=== PATIENT | female | born 1965 | race Caucasian/White ===

== ENCOUNTER → 2016-10-13 | Outpatient (CLI) | payer OTHER ==
[~2016-10-13] MED LIST: AMBI5TAB OR; MULTIVIT PO; OMEGA 3 PO; PERC5TAB6 PO; PRESTIQ PO
[2016-10-13 07:30] LABS: MEAN CORPUSCULAR HEMOGLOBIN 32.1 pg (27.0-33.0); MEAN CORPUSCULAR HGB CONC 32.5 g/dl (32.0-36.5); MEAN CORPUSCULAR VOLUME 98.8 fl (80.0-96.0); RED CELL DISTRIBUTION WIDTH 12.7 % (11.5-14.5); WHITE BLOOD COUNT 4.1 K/mm3 (4.0-10.0)
[2016-10-13 08:03] LABS: ALBUMIN 3.8 GM/DL (3.2-5.2); ALBUMIN/GLOBULIN RATIO 1.15 (1.00-1.93); ALKALINE PHOSPHATASE 39 U/L (45-117); ALT/SGPT 32 U/L (12-78); ANION GAP 8 MEQ/L (8-16); AST/SGOT 29 U/L (15-37); BILIRUBIN,TOTAL 0.5 MG/DL (0.2-1.0); BLOOD UREA NITROGEN 19 MG/DL (7-18); CALCIUM LEVEL 8.6 MG/DL (8.5-10.1); CARBON DIOXIDE LEVEL 26 MEQ/L (21-32); CHLORIDE LEVEL 108 MEQ/L (98-107); CREATININE FOR GFR 0.66 MG/DL (0.55-1.02); GLOMERULAR FILTRATION RATE > 60.0 (>58); GLUCOSE, FASTING 87 MG/DL (70-105); POTASSIUM SERUM 4.2 MEQ/L (3.5-5.1); SODIUM LEVEL 142 MEQ/L (136-145); TOTAL PROTEIN 7.1 GM/DL (6.4-8.2)
== END ==
LOC: M LAB 06:36
PROVIDERS: ATTEND Nurse Practitioner Family
DX: R63.4 Abnormal weight loss (principal)

== ENCOUNTER → 2016-10-31 | Outpatient (REF) | payer OTHER | LOC: M LAB REF 16:20 | PROVIDERS: ATTEND Physician Assistant | DX: J02.9 Acute pharyngitis, unspecified (principal) ==

== ENCOUNTER 2016-11-20 16:59 | Emergency (ER) | payer OTHER ==
[~2016-11-20] VITALS: Ht 160 cm; Wt 54.4 kg
[2016-11-20 17:01] VITALS: BP 138/98
[2016-11-20] MEDS ORDERED: LOSA25TA8 PO (17:48)
== END 2016-11-20 20:28 | disposition left against medical advice (07) ==
LOC: M ED 18:13
DX: S09.92XA Unspecified injury of nose, initial encounter (principal); Z53.21 Procedure and treatment not carried out due to patient leaving prior to being seen by health care provider

== ENCOUNTER → 2016-11-21 | Outpatient (CLI) | payer OTHER ==
[~2016-11-21] MED LIST changes: +LOSA25TA8 PO
--- NOTE | 2016-11-21 18:03 | REP ---
Clinical: Facial pain with recent fall. Technique: AP, valle, oblique orbital, lateral nasal and zygomatic arch views. Findings: The osseous structures appear intact without obvious acute fracture or dislocation. The sinuses appear well-aerated and without obvious fluid levels. Subtle nasal bone fracture cannot definitively be excluded. Orbits are intact. Zygomatic arches appear intact. Impression: Cannot exclude subtle nasal bone fracture. Otherwise normal facial bone series. Signed by Geovanny Sharma MD 11/21/2016 05:55 P
== END ==
LOC: M WUC 10:53
PROVIDERS: ATTEND Physician Assistant
DX: S00.33XA Contusion of nose, initial encounter (principal); S00.83XA Contusion of other part of head, initial encounter

== ENCOUNTER 2016-12-24 12:58 | Emergency (ER) | payer OTHER ==
[~2016-12-24] VITALS: Ht 160 cm; Wt 54.4 kg
[2016-12-24 12:59] VITALS: BP 110/79
[2016-12-24] MEDS ORDERED: CIPR500T89 PO (14:07)
[2016-12-24] MEDS ORDERED: PYRI200T5 PO (14:07)
[2016-12-24] MEDS ORDERED: CIPROFLOXACIN 500 MG TAB PO ONE (14:15)
[2016-12-24] MEDS ORDERED: PHENAZOPYRIDINE 100 MG TAB PO ONE (14:15)
== END 2016-12-24 14:24 | disposition home or self-care (01) ==
LOC: M ED 14:11
DX: N39.0 Urinary tract infection, site not specified (principal); Z79.899 Other long term (current) drug therapy; Z88.0 Allergy status to penicillin; Z88.2 Allergy status to sulfonamides

== ENCOUNTER → 2017-01-09 | Outpatient (REF) | payer OTHER ==
[~2017-01-09] MED LIST changes: +CIPR500T89 PO; +PYRI200T5 PO
== END ==
LOC: M LAB REF 16:58
PROVIDERS: ATTEND Nurse Practitioner Family
DX: R30.0 Dysuria (principal)

== ENCOUNTER 2017-03-03 20:06 | Emergency (ER) | payer OTHER ==
[~2017-03-03] VITALS: Ht 157.5 cm; Wt 55.0 kg
[~2017-03-03 20:06] MED LIST changes: +CIPR-249 PO; -CIPR500T89 PO; +PERC5TAB12 PO; -PERC5TAB6 PO; +PYRI1TAB5 PO; -PYRI200T5 PO
[2017-03-03] MEDS ORDERED: ALPR0.25 (20:15)
[2017-03-03 21:51] VITALS: BP 134/98
== END 2017-03-03 22:31 | disposition home or self-care (01) ==
LOC: M ED 22:12
DX: F10.129 Alcohol abuse with intoxication, unspecified (principal); Z79.899 Other long term (current) drug therapy; Z88.0 Allergy status to penicillin; Z88.2 Allergy status to sulfonamides

== ENCOUNTER → 2018-02-28 | Outpatient (CLI) | payer OTHER | LOC: M RAD 13:00 | DX: N63.23 Unspecified lump in the left breast, lower outer quadrant (principal) | CPT/HCPCS: 76642 ==

== ENCOUNTER → 2018-06-17 | Outpatient (CLI) | payer OTHER ==
[2018-06-17 18:05] LABS: HEMATOCRIT 34.8 % (36.0-47.0); HEMOGLOBIN 11.2 g/dl (12.0-15.5); MEAN CORPUSCULAR HEMOGLOBIN 30.4 pg (27.0-33.0); MEAN CORPUSCULAR HGB CONC 32.2 g/dl (32.0-36.5); MEAN CORPUSCULAR VOLUME 94.6 fl (80.0-96.0); PLATELET COUNT, AUTOMATED 225 10^3/uL (150-450); RED BLOOD COUNT 3.68 10^6/uL (4.00-5.40); RED CELL DISTRIBUTION WIDTH 12.4 % (11.5-14.5); WHITE BLOOD COUNT 4.8 10^3/uL (4.0-10.0)
[2018-06-17 18:32] LABS: ALBUMIN 3.9 GM/DL (3.2-5.2); ALKALINE PHOSPHATASE 53 U/L (45-117); ALT/SGPT 26 U/L (12-78); ANION GAP 7 MEQ/L (8-16); AST/SGOT 20 U/L (7-37); BILIRUBIN,TOTAL 0.3 MG/DL (0.2-1.0); BLOOD UREA NITROGEN 13 MG/DL (7-18); CALCIUM LEVEL 8.4 MG/DL (8.5-10.1); CARBON DIOXIDE LEVEL 30 MEQ/L (21-32); CHLORIDE LEVEL 103 MEQ/L (98-107); CREATININE FOR GFR 0.61 MG/DL (0.55-1.30); GLOMERULAR FILTRATION RATE > 60.0 (>51); GLUCOSE, FASTING 72 MG/DL (70-100); POTASSIUM SERUM 3.8 MEQ/L (3.5-5.1); SODIUM LEVEL 140 MEQ/L (136-145); TOTAL PROTEIN 6.9 GM/DL (6.4-8.2)
== END ==
LOC: M LAB 15:56
DX: F10.20 Alcohol dependence, uncomplicated (principal)
CPT/HCPCS: 84443

== ENCOUNTER → 2018-06-17 | Outpatient (CLI) | payer OTHER ==
[2018-06-17 17:31] LABS: APPEARANCE, URINE CLEAR (CLEAR); BACTERIA, URINE AUTO NEGATIVE (NEGATIVE); BILIRUBIN, URINE AUTO NEGATIVE (NEGATIVE); BLOOD, URINE BLOOD NEGATIVE (NEGATIVE); COLOR, URINE STRAW (YELLOW); GLUCOSE, URINE (UA) AUTO NEGATIVE (NEGATIVE); KETONE, URINE AUTO NEGATIVE (NEGATIVE); LEUKOCYTE ESTERASE, URINE AUTO NEGATIVE (NEGATIVE); NITRITE, URINE AUTO NEGATIVE (NEGATIVE); PROTEIN, URINE AUTO NEGATIVE (NEGATIVE); RBC, URINE AUTO 0 /HPF (0-3); SPECIFIC GRAVITY URINE AUTO 1.005 (1.002-1.035); SQUAMOUS EPITHELIAL CELL UR AU 0 /HPF (0-6); UROBILINOGEN, URINE AUTO 0.2 mg/dL (0.0-2.0); WBC, URINE AUTO 0 /HPF (0-3)
[2018-06-17 17:51] LABS: ALBUMIN 3.8 GM/DL (3.2-5.2); ALBUMIN/GLOBULIN RATIO 1.31 (1.00-1.93); ALKALINE PHOSPHATASE 55 U/L (45-117); ALT/SGPT 30 U/L (12-78); ANION GAP 5 MEQ/L (8-16); AST/SGOT 19 U/L (7-37); BILIRUBIN,TOTAL 0.3 MG/DL (0.2-1.0); BLOOD UREA NITROGEN 12 MG/DL (7-18); CALCIUM LEVEL 8.2 MG/DL (8.5-10.1); CARBON DIOXIDE LEVEL 30 MEQ/L (21-32); CHLORIDE LEVEL 104 MEQ/L (98-107); GLOMERULAR FILTRATION RATE > 60.0 (>51); GLUCOSE, FASTING 76 MG/DL (70-100); POTASSIUM SERUM 3.8 MEQ/L (3.5-5.1); SODIUM LEVEL 139 MEQ/L (136-145); TOTAL PROTEIN 6.7 GM/DL (6.4-8.2)
[2018-06-17 18:02] LABS: HEPATITIS B SURFACE ANTIBODY POSITIVE (POSITIVE)
[2018-06-17 18:06] LABS: BASO % 0.8 % (0.0-1.0); EOS # 0.1 10^3/uL (0.0-0.50); EOS % 2.3 % (0.0-3.0); HEMATOCRIT 35.7 % (36.0-47.0); HEMOGLOBIN 11.6 g/dl (12.0-15.5); IMMATURE GRANULOCYTE % 0.2 % (0-3.0); LYMPH # 2.1 10^3/uL (1.5-4.5); LYMPH % 43.6 % (24.0-44.0); MEAN CORPUSCULAR HEMOGLOBIN 30.3 pg (27.0-33.0); MEAN CORPUSCULAR HGB CONC 32.5 g/dl (32.0-36.5); MEAN CORPUSCULAR VOLUME 93.2 fl (80.0-96.0); MONO # 0.3 10^3/uL (0.0-0.8); NEUTROPHILS # 2.2 10^3/uL (1.8-7.7); NEUTROPHILS % 46.1 % (36.0-66.0); PLATELET COUNT, AUTOMATED 230 10^3/uL (150-450); RED BLOOD COUNT 3.83 10^6/uL (4.00-5.40); RED CELL DISTRIBUTION WIDTH 12.4 % (11.5-14.5); WHITE BLOOD COUNT 4.7 10^3/uL (4.0-10.0)
[2018-06-17 18:13] LABS: HEPATITIS B SURFACE ANTIGEN NEGATIVE (NEGATIVE)
[2018-06-22 00:07] LABS: ALPHA 2-MACROGLOBULIN 192 mg/dL (110-276); ALT 24 IU/L (0-40); APOLIPOPROTEIN A-1 177 mg/dL (116-209); FIBROSIS SCORE 0.07 (0.00-0.21); GGT 12 IU/L (0-60); HAPTOGLOBIN 89 mg/dL (34-200); HEPATITIS A IgG TOTAL Positive (Negative); HEPATITIS C QUANTITATION HCV Not Detected IU/mL (.); NECROINFLAM SCORE 0.08 (0.00-0.17); NECROINFLAMM GRADE A0-No activity (.); TOTAL BILIRUBIN 0.3 mg/dL (0.0-1.2)
== END ==
LOC: M LAB 16:05
DX: Z02.2 Encounter for examination for admission to residential institution (principal); B18.2 Chronic viral hepatitis C; B16.9 Acute hepatitis B without delta-agent and without hepatic coma; B15.9 Hepatitis A without hepatic coma; R53.83 Other fatigue
CPT/HCPCS: 84460

== ENCOUNTER → 2018-09-11 | Outpatient (CLI) | payer OTHER ==
[~2018-09-11] MED LIST changes: +ALPR0.25; +LOSA25TA14 PO; -LOSA25TA8 PO
[2018-09-11 13:39] LABS: HEPATITIS B SURFACE ANTIGEN NEGATIVE (NEGATIVE)
[2018-09-11 14:05] LABS: HEPATITIS C VIRUS ABY INDEX 0.1 INDEX (<0.8)
[2018-09-11 14:06] LABS: HEPATITIS B CORE ANTIBODY IGM NEGATIVE (NEGATIVE)
[2018-09-11 14:08] LABS: HEPATITIS A ANTIBODY IGM NEGATIVE (NEGATIVE)
== END ==
LOC: M LAB 12:06
PROVIDERS: ATTEND Nurse Practitioner Family
DX: F10.20 Alcohol dependence, uncomplicated (principal)

== ENCOUNTER → 2018-10-07 | Outpatient (REF) ==
[2018-10-07 14:07] LABS: RUBELLA IgG QUALITATIVE IMMUNE (IMMUNE)
== END ==
LOC: M LAB REF 12:23
PROVIDERS: ATTEND Nurse Practitioner Adult Health
DX: Z00.00 Encounter for general adult medical examination without abnormal findings (principal)

== ENCOUNTER 2018-10-11 14:15 | Emergency (ER) | payer OTHER ==
[2018-10-11] MEDS ORDERED: VALA1TAB2 PO (15:22)
[2018-10-11] MEDS ORDERED: VENL150C43 PO (15:23)
[2018-10-11] MEDS ORDERED: TERC0.4C PV (15:24)
[2018-10-11] MEDS ORDERED: FLON1SPR (15:25)
[2018-10-11 15:55] LABS: BASO % 0.6 % (0.0-1.0); EOS # 0.2 10^3/uL (0.0-0.50); EOS % 3.2 % (0.0-3.0); HEMATOCRIT 33.5 % (36.0-47.0); HEMOGLOBIN 10.8 g/dl (12.0-15.5); LYMPH # 1.8 10^3/uL (1.5-4.5); LYMPH % 38.9 % (24.0-44.0); MEAN CORPUSCULAR HEMOGLOBIN 29.6 pg (27.0-33.0); MEAN CORPUSCULAR HGB CONC 32.2 g/dl (32.0-36.5); MEAN CORPUSCULAR VOLUME 91.8 fl (80.0-96.0); MONO # 0.3 10^3/uL (0.0-0.8); MONO % 6.5 % (0.0-5.0); NEUTROPHILS # 2.3 10^3/uL (1.8-7.7); NEUTROPHILS % 50.6 % (36.0-66.0); PLATELET COUNT, AUTOMATED 222 10^3/uL (150-450); RED BLOOD COUNT 3.65 10^6/uL (4.00-5.40); WHITE BLOOD COUNT 4.6 10^3/uL (4.0-10.0)
--- NOTE | 2018-10-11 16:01 | REP ---
Head CT without contrast: History: Altered mental status. Comparison study: May 24, 2015. CT findings: Bone window settings demonstrate an intact bony calvarium. There is no evidence of skull fracture or incidental bony calvarial lesion. The visualized paranasal sinuses appear clear. No intraorbital abnormality is seen. On soft tissue window setting images; the lateral, third, and fourth ventricles are normal in size and position. Boyer-white differentiation pattern is normal above and below the tentorium. There is mild calcification of the basal ganglia noted on the left unchanged from the 2015 prior study. There are is no evidence of intracranial hemorrhage. No mass, edema, infarction, or midline shift is seen. No extra-axial fluid collection is appreciated. Impression: Physiologic basal ganglia calcification again noted. Otherwise negative noncontrast head CT. Electronically Signed by Richard Argueta MD 10/11/2018 03:53 P
[2018-10-11 16:13] LABS: ACETAMINOPHEN LEVEL < 2.0 UG/ML (10.0-30.0); ALBUMIN 3.8 GM/DL (3.2-5.2); ALT/SGPT 19 U/L (12-78); BILIRUBIN,DIRECT 0.1 MG/DL (0.0-0.2); BILIRUBIN,TOTAL 0.3 MG/DL (0.2-1.0); BLOOD UREA NITROGEN 10 MG/DL (7-18); CALCIUM LEVEL 8.3 MG/DL (8.5-10.1); CARBON DIOXIDE LEVEL 26 MEQ/L (21-32); CHLORIDE LEVEL 104 MEQ/L (98-107); CREATININE FOR GFR 0.61 MG/DL (0.55-1.30); ETHYL ALCOHOL (ETHANOL) < 0.003 % (0.000-0.010); GLOMERULAR FILTRATION RATE > 60.0 (>51); GLUCOSE, FASTING 88 MG/DL (70-100); POTASSIUM SERUM 3.7 MEQ/L (3.5-5.1); SALICYLATE LEVEL < 1.7 MG/DL (5.0-30.0); SODIUM LEVEL 138 MEQ/L (136-145); TOTAL PROTEIN 6.5 GM/DL (6.4-8.2)
[2018-10-11 16:22] LABS: AMPHETAMINES LEVEL URINE NEGATIVE (NEGATIVE); BARBITURATES URINE NEGATIVE (NEGATIVE); BENZODIAZEPINES URINE NEGATIVE (NEGATIVE); CANNABINOIDS URINE NEGATIVE (NEGATIVE); COCAINE METABOLITE URINE NEGATIVE (NEGATIVE); METHADONE URINE NEGATIVE (NEGATIVE); OPIATES URINE NEGATIVE (NEGATIVE); PHENCYCLIDINE URINE NEGATIVE (NEGATIVE)
[2018-10-11 16:55] VITALS: BP 135/93
[2018-10-17] MEDS ORDERED: MULT1TAB10 PO (09:03)
[2018-10-17] MEDS ORDERED: VITA500T3 PO (15:10)
[2018-10-17] MEDS ORDERED: MELA10CA PO (15:10)
== END 2018-10-11 17:22 | disposition home or self-care (01) ==
LOC: M ED 14:15
DX: R22.0 Localized swelling, mass and lump, head (principal); R20.0 Anesthesia of skin; F41.9 Anxiety disorder, unspecified; F90.9 Attention-deficit hyperactivity disorder, unspecified type; F11.20 Opioid dependence, uncomplicated; F10.21 Alcohol dependence, in remission; Z87.891 Personal history of nicotine dependence; Z79.899 Other long term (current) drug therapy
CPT/HCPCS: 36415; 70450; 80048; 80076; 80307; 84443; 85025; 93041; 94760; 99285; G0480

== ENCOUNTER → 2018-10-29 | Outpatient (REF) | payer OTHER ==
[~2018-10-29] MED LIST changes: +FLON1SPR; +MELA10CA PO; +MULT1TAB10 PO; +TERC0.4C PV; +TOPI1CAP4 PO; +VALA1TAB2 PO; +VENL150C43 PO; +VITA500T3 PO
[2018-10-29 15:43] LABS: RHEUMATOID FACTOR QUANT < 10.0 IU/ML (<15.0); TOTAL PROTEIN 6.7 GM/DL (6.4-8.2)
[2018-10-29 15:52] LABS: VITAMIN B12 LEVEL 954 PG/ML (247-911)
[2018-10-31 13:11] LABS: ALBUMIN 4.32 GM/DL (3.29-5.55); ALBUMIN % 64.5 % (55.8-66.1); ALPHA-1-GLOBULIN % 3.8 % (2.9-4.9); ALPHA-1-GLOBULINS 0.25 GM/DL (0.17-0.41); ALPHA-2-GLOBULINS 0.64 GM/DL (0.42-0.99); ALPHA-2-GLOBULINS % 9.5 % (7.1-11.8); BETA-1-GLOBULINS 0.41 GM/DL (0.28-0.60); BETA-1-GLOBULINS % 6.1 % (4.7-7.2); BETA-2-GLOBULINS 0.28 GM/DL (0.19-0.55); BETA-2-GLOBULINS % 4.2 % (3.2-6.5); GAMMA GLOBULIN % 11.9 % (11.1-18.8)
[2018-11-01 08:07] LABS: COPPER PLASMA 99 ug/dL (72-166)
== END ==
LOC: M LABNEURO 10:20
PROVIDERS: ATTEND Psychiatry & Neurology Neurology
DX: R51 Headache (principal); R20.0 Anesthesia of skin; E11.9 Type 2 diabetes mellitus without complications

== ENCOUNTER 2018-10-31 07:25 | Day surgery (SDC) | payer OTHER, SELFPAY ==
[~2018-10-31] VITALS: Ht 160 cm; Wt 58.1 kg
[~2018-10-31 07:25] MED LIST changes: +LIDOCAINE 2% INJ 100 MG/5 ML SDV (FOR ANES.) As Ordered ONE; +NS 1,000 ML IV SCH; +PROPOFOL 200 MG/20 ML VIAL As Ordered ONE; -TOPI1CAP4 PO
[2018-10-31] MEDS ORDERED: TOPI1CAP4 PO (07:51)
[2018-10-31] MEDS ORDERED: PROPOFOL 200 MG/20 ML VIAL As Ordered ONE (09:16)
--- NOTE | 2018-10-31 09:36 | ROOR ---
Patient Name: Bailey Prieto Procedure Date: 10/31/2018 9:01 AM Date of : 1965 Age: 53 Room: [facility] Gender: Female Note Status: Finalized Procedure: Colonoscopy Indications: Screening in patient at increased risk: Colorectal cancer in mother before age 60, Incidental - Irritable bowel syndrome with constipation Providers: Tyree ZARAGOZA MD Referring MD: WILLIAM Oro Requesting Provider: Medicines: Monitored Anesthesia Care Complications: No immediate complications. Procedure: Pre-Anesthesia Assessment: - The heart rate, respiratory rate, oxygen saturations, blood pressure, adequacy of pulmonary ventilation, and response to care were monitored throughout the procedure. The Colonoscope was introduced through the anus and advanced to 5 cm into the ileum. The colonoscopy was performed without difficulty. The patient tolerated the procedure well. The quality of the bowel preparation was good. Findings: The perianal and digital rectal examinations were normal. The colon (entire examined portion) was significantly redundant. Mild sigmoid diverticulosis and moderate internal hemorrhoids. A diffuse area of mild melanosis was found in the entire colon. The entire examined colon appeared normal. Impression: - Redundant colon. - Mild sigmoid diverticulosis. - Moderate Internal hemorrhoids. - The entire colon is otherwise normal. - No specimens collected. Recommendation: - Discontinue Trulance and Lactulose.(ineffective) - Start Senoside 2 tabs daily. (may increase to 2 tabs twice a day) - (the script was sent to your pharmacy on file) - Repeat colonoscopy in 5 years for surveillance. Tyree Zaragoza MD Tyree ZARAGOZA MD 10/31/2018 9:35:49 AM This report has been signed electronically. Number of Addenda: 0 Note Initiated On: 10/31/2018 9:01 AM Estimated Blood Loss: Estimated blood loss: none.
[2018-10-31 10:05] VITALS: BP 129/85
== END 2018-10-31 10:09 | disposition home or self-care (01) ==
LOC: M OPP 07:25
PROVIDERS: ATTEND Internal Medicine Gastroenterology
DX: Z80.0 Family history of malignant neoplasm of digestive organs (principal); K58.1 Irritable bowel syndrome with constipation; K64.8 Other hemorrhoids; Q43.8 Other specified congenital malformations of intestine; K63.89 Other specified diseases of intestine; F41.9 Anxiety disorder, unspecified; F32.9 Major depressive disorder, single episode, unspecified; Z88.0 Allergy status to penicillin; Z88.2 Allergy status to sulfonamides; Z88.5 Allergy status to narcotic agent; Z79.899 Other long term (current) drug therapy

== ENCOUNTER → 2018-11-08 | Outpatient (REF) | payer OTHER ==
[~2018-11-08] MED LIST changes: -LIDOCAINE 2% INJ 100 MG/5 ML SDV (FOR ANES.) As Ordered ONE; -NS 1,000 ML IV SCH; -PROPOFOL 200 MG/20 ML VIAL As Ordered ONE; +TOPI1CAP4 PO
[2018-11-08 14:26] LABS: HEMOGLOBIN A1c 5.7 %
[2018-11-13 14:15] LABS: LEAD BLOOD ADULT <1 ug/dL (0-4); MERCURY LEVEL None Detected ug/L (0.0-14.9); VITAMIN B1 LEVEL WHOLE BLOOD 86.8 nmol/L (66.5-200.0); VITAMIN B6,PYRIDOXAL PHOSPHATE 19.4 ug/L (2.0-32.8); VITAMIN E(ALPHA TOCOPHEROL) 10.8 mg/L (7.0-25.1); VITAMIN E(GAMMA TOCOPHEROL) 1.6 mg/L (0.5-5.5)
== END ==
LOC: M LABNEURO 08:58
PROVIDERS: ATTEND Psychiatry & Neurology Neurology
DX: Z11.59 Encounter for screening for other viral diseases (principal)

== ENCOUNTER → 2018-11-19 | Outpatient (CLI) | payer OTHER ==
--- NOTE | 2018-11-19 12:02 | REPMRS ---
Patient History The patient states she had a clinical breast exam in 11/2018. Patient is postmenopausal and has history of basal cell skin cancer at age 45. Family history of breast cancer at age 72 in paternal grandmother. Took hormonal contraceptives for 2 years 3 months. Digital Woman Screen Mammo: November 19, 2018 - Exam #: [id number] Bilateral CC and MLO view(s) were taken. Technologist: Rosey Ohara, Technologist Prior study comparison: November 04, 2015, digital woman screen mammo performed at [facility]. August 03, 2014, digital woman screen mammo performed at [facility]. FINDINGS: The breast tissue is heterogeneously dense. This may lower the sensitivity of mammography. There has been no change in the appearance of the mammogram from the prior studies. There is a moderate amount of residual fibroglandular tissue which is fairly symmetric. There is no interval development of dominant mass, architectural distortion, or clustered microcalcification typical of malignancy. 3-D tomosynthesis shows no additional findings. Assessment: BI-RADS/ACR category 1 mammogram. Negative Mammogram. Recommendation Routine screening mammogram in 1 year (for women over age 40). This mammogram was interpreted with the aid of an FDA-approved computer-aided dectection system. A. Negative x-ray reports should not delay biopsy if a dominant or clinically suspicious mass is present. B. Four to eight percent of cancers are not identified by mammography. C. Adenosis and dense breast may obscure an underlying neoplasm. Electronically Signed By: Josue Muñiz MD 11/19/18 [id number]
== END ==
LOC: M WHC 09:27
PROVIDERS: ATTEND Nurse Practitioner Family
DX: Z12.31 Encounter for screening mammogram for malignant neoplasm of breast (principal); Z78.0 Asymptomatic menopausal state; Z85.828 Personal history of other malignant neoplasm of skin; Z92.0 Personal history of contraception

== ENCOUNTER → 2018-11-19 | Outpatient (REF) | payer OTHER ==
[2018-11-21 15:52] LABS: HPV HYBRID CAPTURE II Negative (Negative)
== END ==
LOC: M SFHCWAGY 10:04
PROVIDERS: ATTEND Nurse Practitioner Family
DX: Z12.4 Encounter for screening for malignant neoplasm of cervix (principal)

== ENCOUNTER → 2018-11-27 | Outpatient (REF) | payer OTHER | LOC: M LAB REF 10:48 | PROVIDERS: ATTEND Physician Assistant | DX: R07.0 Pain in throat (principal) ==

== ENCOUNTER → 2018-12-04 | Outpatient (REF) | payer OTHER ==
[2018-12-04 15:04] LABS: INFLUENZA A AMPLIFICATION NEGATIVE (NEGATIVE); INFLUENZA B AMPLIFICATION NEGATIVE (NEGATIVE)
== END ==
LOC: M LAB REF 14:13
PROVIDERS: ATTEND Physician Assistant
DX: J11.1 Influenza due to unidentified influenza virus with other respiratory manifestations (principal)

== ENCOUNTER → 2018-12-25 | Outpatient (CLI) | payer OTHER ==
[~2018-12-25] MED LIST changes: -TERC0.4C PV; +TERC0.4C2 PV
--- NOTE | 2018-12-25 10:49 | REP ---
CT LUMBAR SPINE WITHOUT CONTRAST: HISTORY: Spondylolisthesis. There is no disc bulge or herniation at the L1-2 and L2-3 levels. The nerves exit the neural foramina without compression. A diffuse disc bulge is present at the L3-4 level. There is minimal compression of the thecal sac. A small left intraforaminal disc protrusion is present. There is posterolateral displacement of the left L3 nerve distal to the neural foramen. The right L3 nerve exits the neural foramen without compression. A diffuse disc bugle is present at the L4-5 level. There is hypertrophy of the ligamenta flava and posterior articulating facets. There are 10 mm of grade 2 spondylolisthesis of L4 on 5. These findings produce severe central canal stenosis. There is compression of the L5 nerves in the lateral recesses. There is compression of the L4 nerves in the neural foramina. A diffuse disc bulge is present at the L5-S1 level. There is minimal compression of the thecal sac. There is hypertrophy of the posterior articulating facets. The L5 nerves exit the neural foramina without compression. The L4-5 intervertebral disc is decreased in height consistent with disc degeneration. The vertebral bodies are normal in height. IMPRESSION: 1. Diffuse disc bugles at the L3-4 and L5-S1 levels with minimal thecal sac compression. 2. Severe central canal stenosis at the L4-5 level secondary to disc bulge, ligamentous and facet hypertrophy and grade 2 spondylolisthesis. There is compression of the L4 nerves in the neural foramina. Electronically Signed by Rohan Pizarro MD 12/25/2018 10:51 A
== END ==
LOC: M RAD 09:31
PROVIDERS: ATTEND Orthopaedic Surgery
DX: M43.16 Spondylolisthesis, lumbar region (principal); M51.26 Other intervertebral disc displacement, lumbar region; M51.27 Other intervertebral disc displacement, lumbosacral region

== ENCOUNTER 2019-02-24 22:44 | Emergency (ER) | payer OTHER ==
[~2019-02-24] VITALS: Ht 157.5 cm; Wt 56.8 kg
[2019-02-24 23:26] LABS: BASO % 0.9 % (0.0-1.0); EOS # 0.2 10^3/uL (0.0-0.50); EOS % 4.3 % (0.0-3.0); HEMATOCRIT 32.4 % (36.0-47.0); HEMOGLOBIN 10.7 g/dl (12.0-15.5); LYMPH # 2.7 10^3/uL (1.5-4.5); LYMPH % 56.9 % (24.0-44.0); MEAN CORPUSCULAR HEMOGLOBIN 29.6 pg (27.0-33.0); MEAN CORPUSCULAR VOLUME 89.5 fl (80.0-96.0); MONO # 0.3 10^3/uL (0.0-0.8); MONO % 5.6 % (0.0-5.0); NEUTROPHILS # 1.5 10^3/uL (1.8-7.7); NEUTROPHILS % 32.3 % (36.0-66.0); PLATELET COUNT, AUTOMATED 262 10^3/uL (150-450); RED BLOOD COUNT 3.62 10^6/uL (4.00-5.40); WHITE BLOOD COUNT 4.7 10^3/uL (4.0-10.0)
[2019-02-24 23:36] LABS: INR 0.92; PROTHROMBIN TIME 12.4 SECONDS (12.1-14.4)
[2019-02-24 23:37] LABS: PARTIAL THROMBOPLASTIN TIME 28.7 SECONDS (25.4-37.6)
[2019-02-24 23:49] LABS: BLOOD UREA NITROGEN 11 MG/DL (7-18); CALCIUM LEVEL 8.8 MG/DL (8.5-10.1); CARBON DIOXIDE LEVEL 25 MEQ/L (21-32); CHLORIDE LEVEL 107 MEQ/L (98-107); CK-MB VALUE MASS 2.4 NG/ML (<3.6); CPK CREATINE PHOSPHOKINASE 170 U/L (26-192); CREATININE FOR GFR 0.69 MG/DL (0.55-1.30); GLOMERULAR FILTRATION RATE > 60.0 (>51); GLUCOSE, FASTING 100 MG/DL (70-100); MB/CK RELATIVE INDEX 1.41 (< OR =4); POTASSIUM SERUM 3.7 MEQ/L (3.5-5.1); SODIUM LEVEL 140 MEQ/L (136-145); TROPONIN I < 0.02 NG/ML (< 0.10)
--- NOTE | 2019-02-25 00:32 | REPVR ---
EXAM: CT Head Without Contrast EXAM DATE/TIME: 02/24/2019 11:17 PM CLINICAL HISTORY: 53 years old, female; Signs and symptoms; Other: Neuro symptoms; Additional info: CVA - nursing interventions must not delay CT TECHNIQUE: Imaging protocol: Axial computed tomography images of the head without contrast. Radiation optimization: All CT scans at this facility use at least one of these dose optimization techniques: automated exposure control; mA and/or kV adjustment per patient size (includes targeted exams where dose is matched to clinical indication); or iterative reconstruction. COMPARISON: CT Head without contrast 10/11/2018 3:39 PM FINDINGS: There is no acute intracranial hemorrhage, extra axial hematoma, or midline shift. The ventricles are not dilated. No CT findings are seen at the current time to suggest changes of acute territorial vascular infarction. Note is made however, that CT changes, may lag clinical findings in acute CVA. If clinically indicated, consideration could be given to MRI with diffusion weighted imaging, due to its greater sensitivity, for detection of acute ischemic change. Intracranial calcifications are incidentally noted. No pericranial scalp hematoma is seen. No acute cranial vault fracture is seen. No fluid is seen within the visualized paranasal sinuses or mastoid air cells. IMPRESSION: No evidence of acute territorial major vessel infarct, mass effect, or hemorrhage. Findings discussed above in detail. Electronically signed by: Jose Martin Frost On 02/25/2019 00:31:56 AM
[2019-02-25 01:32] VITALS: BP 128/84
--- NOTE | 2019-02-25 06:06 | ECGEPIP ---
[facility] - ED Test Date: 2019-02-24 Pat Name: ELLIE INDEX Department: Room: - Gender: Female Slip Caster: HIPOLITO : 1965 Requested By: CHARLIE Jordan Order Number: [id number] Reading MD: Jayant Dominguez Measurements Intervals [place] Rate: 66 P: 20 DE: 150 QRS: QRSD: 99 T: 128 QT: 387 QTc: 406 Interpretive Statements SINUS RHYTHM POSSIBLE ANTERIOR MYOCARDIAL INFARCTION, PROBABLY OLD SIMILAR TO 12/09/15 Electronically Signed on 02-25-2019 6:05:41 EDT by Jayant Dominguez
--- NOTE | 2019-02-25 07:48 | REP ---
Portable chest, 11:27 p.m., single AP view with the patient sitting: Comparison is 12/07, 09/29/2015. The lung yadav are clear. The cardiac size is normal. The sihlpa and mediastinum are unremarkable. There are rib deformities laterally of the left seventh and eighth ribs as an interval change compatible with age indeterminate nondisplaced rib fractures. Impression: Negative portable chest. Age indeterminate fractures of the left seventh and eighth ribs, not present previously. Electronically Signed by Carlos Albrecht MD 02/25/2019 07:40 A
== END 2019-02-25 01:53 | disposition home or self-care (01) ==
LOC: M ED 22:44
DX: R20.2 Paresthesia of skin (principal); F10.10 Alcohol abuse, uncomplicated; Z79.899 Other long term (current) drug therapy; Z88.0 Allergy status to penicillin; Z88.1 Allergy status to other antibiotic agents; Z88.2 Allergy status to sulfonamides; Z88.8 Allergy status to other drugs, medicaments and biological substances

== ENCOUNTER 2019-04-07 05:44 | Inpatient (IN) | payer OTHER ==
--- NOTE | 2019-04-04 18:04 | HPE ---
DATE OF ADMISSION: 04/07/2019 ATTENDING PHYSICIAN: Dr. Maik Denney CHIEF COMPLAINT: Right lower extremity pain and low back pain. HISTORY: This is a pleasant 53-year-old female patient with worsening low back pain and right lower extremity radiculopathic pain that has failed conservative treatment and elected for surgery for her continued symptoms. She has been consented by Dr. Maik Denney for a right unilateral laminectomy, posterior spinal fusion of L4, L5-S1, and pedicle screws with iliac donor graft for her continued symptoms. ALLERGIES: SULFA DRUGS and PENICILLIN. CURRENT MEDICATIONS: - Effexor 225 mg one by mouth daily - Naprosyn 375 mg one by mouth twice a day PAST MEDICAL HISTORY: Depression. FAMILY HISTORY: Noncontributory. SOCIAL HISTORY: The patient is a nonsmoker and does not use alcohol. REVIEW OF SYSTEMS: Denies fever, chills, chest pain, shortness breath, nausea, vomiting, diarrhea. PHYSICAL EXAMINATION: She is a well-developed, well-nourished adult female who is alert and oriented and has appropriate mood and affect. She has a regular rate and rhythm. S1, S2 auscultated. Lungs clear to auscultation bilaterally with no wheezes, rales, rhonchi. Abdomen soft and nontender. The lumbar spine shows overlying skin intact. No obvious deformity. Bilateral lower extremities are well perfused. LABORATORY DATA: Hemoglobin 10.7. IMPRESSION: Spondylolisthesis, spinal stenosis, and disc degeneration of the lumbar spine. PLAN: Consented for above procedure with Dr. Maik Denney
[2019-04-07] VITALS (8 sets, daily range): BP systolic 83–95; BP diastolic 48–60
[~2019-04-07] VITALS: Ht 157.5 cm; Wt 56.6 kg
[~2019-04-07 05:44] MED LIST changes: +CYAN500T8 PO; -VITA500T3 PO
[2019-04-07] MEDS ORDERED: LR 1,000 ML IV ONE ×2 (06:00→18:00)
[2019-04-07] MEDS ORDERED: PERCOCET 5MG/325MG TAB PO ONE (06:00)
[2019-04-07] MEDS ORDERED: GABAPENTIN 300 MG CAP PO ONE (06:00)
[2019-04-07] MEDS ORDERED: BUPIVACAINE/EPIN 0.5% 30 ML VIAL As Ordered ONE (06:46)
[2019-04-07] MEDS ORDERED: BUPIVACAINE HCL 0.5% 10 ML VIAL As Ordered ONE (06:46)
[2019-04-07] MEDS ORDERED: THROMBIN SOLN 20,000 UNITS KIT As Ordered ONE (06:46)
[2019-04-07] MEDS ORDERED: TRANEXAMIC ACID 100 MG/ML 10ML VIAL As Ordered ONE (06:46)
[2019-04-07] MEDS ORDERED: EPINEPHrine INJ 1 MG/ML 1ML AMP As Ordered ONE (06:47)
[2019-04-07] MEDS ORDERED: VANCOMYCIN HCL 500 MG/10 ML VIAL (J3370) As Ordered ONE (06:47)
[2019-04-07] MEDS ORDERED: BUPIVACAINE LIPOSOME/PF 1.3% 20ML VIAL (13.3MG/ML)(EXPAREL)(C9290 PER1MG) As Ordered ONE (06:47)
[2019-04-07] MEDS ORDERED: BUPIVACAINE/EPIN 0.25% 30 ML VIAL As Ordered ONE (06:48)
[2019-04-07] MEDS ORDERED: BACITRACIN PWD 50,000 UNITS VIAL As Ordered ONE ×2 (06:48→07:15)
[2019-04-07] MEDS ORDERED: fentaNYL 250 MCG/5 ML INJECTION (J3010) As Ordered ONE (07:08)
[2019-04-07] MEDS ORDERED: MIDAZOLAM INJ 2 MG/2 ML VIAL (J2250) As Ordered ONE (07:08)
[2019-04-07] MEDS ORDERED: dexameTHASONE 4 MG/ML 1ML VIAL (J1100) As Ordered ONE ×2 (07:09→07:45)
[2019-04-07] MEDS ORDERED: LIDOCAINE 2% INJ 100 MG/5 ML SDV (FOR ANES.) As Ordered ONE (07:09)
[2019-04-07] MEDS ORDERED: ROCURONIUM BROMIDE 50 MG/5 ML VIAL As Ordered ONE ×2 (07:09→08:37)
[2019-04-07] MEDS ORDERED: ONDANSETRON 4MG/2ML VIAL (J2405) As Ordered ONE ×2 (07:09→16:03)
[2019-04-07] MEDS ORDERED: PROPOFOL 200 MG/20 ML VIAL As Ordered ONE (07:09)
[2019-04-07] MEDS ORDERED: METOCLOPRAMIDE INJ 10MG/2ML VIAL (J2765) As Ordered ONE (07:10)
[2019-04-07] MEDS ORDERED: PHENYLephrine HCL 500 MCG/5 ML (100MCG/ML) SYRINGE (J2370) As Ordered ONE ×2 (10:47→14:16)
[2019-04-07] MEDS ORDERED: ePHEDrine SULFATE 25 MG/5 ML(5MG/ML) SYRINGE As Ordered ONE ×2 (10:47→14:15)
[2019-04-07] MEDS ORDERED: ACETAMINOPHEN 1000MG 100ML IV BTL (OFIRMEV) (J0131 PER 10MG) As Ordered ONE (11:53)
[2019-04-07] MEDS ORDERED: SUGAMMADEX SODIUM 500 MG/5 ML VIAL (BRIDION) As Ordered ONE (12:13)
[2019-04-07] MEDS ORDERED: fentaNYL 100 MCG/2 ML INJECTION (J3010) As Ordered ONE (12:43)
[2019-04-07] MEDS ORDERED: ceFAZolin 2 GM/D5W 50 ML IV BAG (J0690 PER 500MG) As Ordered ONE (12:53)
--- NOTE | 2019-04-07 14:01 | REP ---
PARTIAL LUMBAR SPINE SERIES: FOUR VIEWS INTRAPROCEDURAL RADIOGRAPHS. HISTORY: Right unilateral laminectomy. COMPARISON RADIOGRAPHS: March 01, 2016 FINDINGS: A sequence of four intraoperative cross-table lateral lumbar spine radiographs are submitted time-stamped 9:13 a.m., 9:30 a.m., 09:35 a.m., and 9:41 a.m. The initial 9:13 a.m. radiograph demonstrates an intraoperative probe in the interspinous space at the dorsal aspect of the spinal canal at L2-3. There is a grade 1 to 2 spondylolisthesis at L4-5. The 9:30 a.m. radiograph demonstrates an intraoperative probe at the interspinous space at L3-4. The 9:35 a.m. film demonstrates an intraoperative probe placed at L5-S1 at the dorsal aspect of the spinal canal. At 9:41 a.m., there are three visible intraoperative probes aligned with the dorsal aspect of the thecal sac at L3-4, L4-5, and L5-S1. Electronically Signed by Richard Argueta MD 04/07/2019 05:17 P
[2019-04-07] MEDS ORDERED: PHENYLEPHRINE INJ 10MG/ML VIAL (J2370) As Ordered ONE (14:16)
[2019-04-07] MEDS ORDERED: PROMETHAZINE INJ 25 MG/ML VIAL (J2550) IV PRN (16:00)
[2019-04-07] MEDS ORDERED: PERCOCET 5MG/325MG TAB PO PRN (16:00)
[2019-04-07] MEDS ORDERED: HYDROMORPHONE HCL 0.5 MG/ 0.5 ML SYRINGE (J1170 PER 1) As Ordered ONE ×2 (16:03→16:27)
[2019-04-07] MEDS: HYDROMORPHONE HCL 0.5 MG/ 0.5 ML SYRINGE (J1170 PER 1) IV PRN ×3 (16:09→16:20)
--- NOTE | 2019-04-07 16:12 | REP ---
Lumbar spine: Three views limited study intraoperative. History: Laminectomy. 3-minute 45 seconds of fluoroscopy time is reported. Findings: A sequence of three last image hold fluoroscopically obtained spot radiographs of the lumbar spine document operative transpedicular screw placement and dorsal fixation malaika positioning across the L4-5 and L5-S1. There is an L4-5 spondylolisthesis. Electronically Signed by Richard Argueta MD 04/07/2019 05:18 P
[2019-04-07] MEDS ORDERED: oxyCODONE 5MG TAB PO PRN (16:15)
[2019-04-07] MEDS ORDERED: ONDANSETRON 4MG/2ML VIAL (J2405) IV PRN (16:15)
[2019-04-07] MEDS ORDERED: LR 1,000 ML IV SCH (16:15)
[2019-04-07] MEDS ORDERED: fentaNYL 100 MCG/2 ML INJECTION (J3010) IV PRN (16:15)
[2019-04-07] MEDS: D5W/LR 1,000 ML IV SCH (19:17)
[2019-04-07] MEDS: ASCORBIC ACID 500 MG TAB PO SCH (20:11)
[2019-04-08] MEDS: CYCLOBENZAPRINE 10 MG TAB PO PRN ×2 (01:43→09:38)
[2019-04-08 02:00] VITALS: BP 96/61
[2019-04-08] MEDS: D5W/LR 1,000 ML IV SCH (02:00)
[2019-04-08 06:00] VITALS: BP 112/61
[2019-04-08] MEDS: PERCOCET 5MG/325MG TAB PO PRN (07:51)
--- NOTE | 2019-04-08 08:42 | RO ---
DATE OF SURGERY: 04/07/2019 PREOPERATIVE DIAGNOSIS: Lumbar spondylolisthesis at L4-5 and spondylosis at L4- 5 and L5-S1 and right lower extremity neurogenic claudication/radiculopathy, back pain. POSTOPERATIVE DIAGNOSIS: Lumbar spondylolisthesis at L4-5 and spondylosis at L4-5 and L5-S1 and right lower extremity neurogenic claudication/radiculopathy, back pain. PROCEDURE PERFORMED: Includes a lumbar laminectomy and posterior spinal intertransverse instrumented fusion, specifically L4 right unilateral laminectomy for decompression of the thecal sac and exiting nerve root L5, right unilateral laminectomy for decompression of the thecal sac and traversing nerve root S1, right unilateral laminectomy for decompression of the S1 nerve root and thecal sac, L4-5 posterior intertransverse arthrodesis, L5-S1 posterior intertransverse arthrodesis additional level, posterior segmental instrumentation bilateral pedicle screws L4 to L5 to S1, left iliac crest bone graft harvested through separate fascial incision, morselized type, along with donor and local graft. SURGEON: Maik Denney MD EQUIPMENT HIRE MANAGER: Dante Wright, physician cleaner assistant. ANESTHESIA: General endotracheal, Dr. Dana Neely. ESTIMATED BLOOD LOSS: Less than 350 mL replaced with crystalloid. COMPLICATIONS: No complications. COMPONENTS USED: Include DePuy Expedium 5.5 system, 45 screws at L4 bilaterally, 40 screws at L5 bilaterally, 35 screw left S1 and right S1. Next, appropriate connecting maalika and end caps utilized. INDICATIONS: Intractable back discomfort, pain radiating down the right lower extremity going on for months, getting worse over time. The patient has elected for operative intervention. MRI evidence of the above diagnosis, CT evidence of the above diagnosis. Consent: Reviewed in detail, including a lane discussion of alternatives such as doing nothing, potential benefits, material risks including but not limited to pain, failure, incomplete relief, bleeding, blood loss, infection, paralysis and other problems. OPERATIVE COURSE: Identified in the holding area, site and side verified, brought to the operating room. Once general endotracheal anesthesia was administered, she was positioned for exposure of the lumbar spine on the Shaq frame. Knees were slightly flexed, axillary rolls were utilized. The patient received perioperative antibiotics. Next, I stood initially on the right side, but I did alternate sides Mr. Wright. I did initially use 3.5 loupe magnification as well as a headlamp. The incision was outlined with a marking pen, infiltrated with 0.25% Marcaine with epinephrine, and made with a 10 blade knife, developed down through skin subcuticular tissues to the posterior lumbar fascia. The posterior lumbar fascia was reflected off of the spinous processes preserving the interspinous ligaments to the right side. Dissection continued down over the S1, L5, L4 and up to the third lamina. Next, divots were drilled in the posterior lamina and localization imaging studies were obtained at this stage. Once we had confirmed our levels, we completed the dissection over the transverse processes on the right side with Alvaro Adriana using the Delroy retractor. Next, contralateral exposure was also accomplished in a similar fashion, again preserving the midline structure out over the transverse processes on the left at L4-5 and S1. Once this was accomplished, Leksell's were utilized to debride significantly hypertrophic facet, especially at 4-5. I did not appreciate a pars defect. It seems the spondylolisthesis was more consistent with a degenerative slip at 4. Next, once this was accomplished we retained bone graft. We also utilized the [employer] trap to collect bur milling. The high-speed bur was utilized to implement a right unilateral laminectomy at L4 up to the bare area of the L4 inferiorly through the lamina of 5 and into the top of S1. Next, curettes were then utilized to remove hypertrophic ligamentum flavum, which was that especially stenotic on the right side of 4 through 5, but also extending to S1. Kerrison's were also utilized. Subarticular decompression was accomplished. The thecal sac was inspected, the neural foramina were probed. Next, once we had confirmed there was an adequate decompression that portion was performed under a microscope. We then irrigated and re-gowned with lead and loupe headlamp magnification. At this stage, pedicle screws were placed, first on the right side by palpating the pedicles as well as use of fluoroscopy. The L4 pedicle screw was drilled with the high-speed bur followed by use of the pedicle finder, verified fluoroscopically, advancement of the pedicle finder into the vertebral body, use of the ball-tip wire to verify an intact pedicle tract, followed by use of the tap. We used mixed bone graft at L4. I again used the ball-tip wire to verify pedicle integrity and then measured for the 45 screw at L4, the 7.0 45 screw was then placed on the right at L4 in a similar fashion, cannulated right L5 and utilized the 65 screw at L5 in a similar fashion, cannulated the pedicle at S1 used the 7.0 pedicle screw at S1 measuring 40. Next, the connecting malaika was placed between the pedicle screws, end caps were applied at S1 and L5. The reduction device was installed and the end cap was placed at L4 reducing the spondylolisthesis from a grade 2 to grade 1. These end caps were then locked into place using a torque counter torque device. Next, bone graft was placed over the transverse processes of 4, 5 and S1. The bone graft was obtained through separate fascial incision at the left iliac crest. Also we mixed in morselized donor bone, 15 mL crushed cancellus and demineralized bone matrix putty. Next, prior to placement of bone graft we did irrigate. Next, once the bone graft was placed we did place some vancomycin crystals over the pedicle screw caps. Next, contralateral left side was approached in the same fashion, including cannulating the pedicle screws beginning at 4, use of the drill to open the pedicle, followed by the pedicle finder, followed by the ball-tip wire, followed by the tap again, 6.0 tap at 4 with a 7.0 screw at 4, 6.5 screw at L5, and a 35 mm 7.0 screw at S1. Next, fluoroscopy was utilized again throughout. The bone graft was placed over the transverse processes of L4-L5 and the sacral ala, which were decorticated. Connecting malaika was placed. Again, we implemented a reduction maneuver reducing the spondylolisthesis by approximately another 3 mm. All end caps were locked into place. The remaining bone graft was placed in the interlaminar space, which was also decorticated. Next, again placed vancomycin crystals over the screw caps. Next, the wounds were closed with interrupted stitch. The iliac crest wound was irrigated and closed with interrupted stitch over Gelfoam. We also utilized TXA after irrigation for hemostasis purposes. We also closed over a 7 flat drain. Next, once fascial tissues were closed we utilized the Exparel anesthetic solution for perioperative pain control which was injected in a separate injection throughout the wound using a 22-gauge needle. Next, the Keily's fascia and deep dermis were reapproximated with interrupted stitch. Prineo dressing was applied. Separate dressing was placed on the drain, which exited superolaterally on the right. Next, the patient was log-rolled to hospital bed, extubated and moved to the recovery room in good condition. Noted be moving all four extremities and was conscious in the recovery room. FIONA
[2019-04-08] MEDS: MIRALAX *UNIT DOSE* 17GM PACKET PO SCH ×2 (09:00→14:08)
[2019-04-08] MEDS: METAMUCIL (PSYLLIUM) PACKET PO SCH (09:38)
[2019-04-08] MEDS: MOM 30ML SUSPENSION UDC PO SCH (09:39)
[2019-04-08] MEDS: ASCORBIC ACID 500 MG TAB PO SCH ×2 (09:39→21:12)
[2019-04-08 10:00] VITALS: BP 96/62
[2019-04-08 14:00] VITALS: BP 84/54
[2019-04-08] MEDS: HYDROMORPHONE HCL 0.5 MG/ 0.5 ML SYRINGE (J1170 PER 1) IV PRN ×3 (14:09→21:49)
[2019-04-08 18:00] VITALS: BP 102/69
[2019-04-08 22:00] VITALS: BP 103/69
[2019-04-09] MEDS: HYDROMORPHONE HCL 0.5 MG/ 0.5 ML SYRINGE (J1170 PER 1) IV PRN ×3 (01:08→08:40)
[2019-04-09 02:00] VITALS: BP 102/67
[2019-04-09] MEDS: CYCLOBENZAPRINE 10 MG TAB PO PRN ×2 (05:40→17:44)
[2019-04-09] MEDS: PERCOCET 5MG/325MG TAB PO PRN ×3 (05:41→21:25)
[2019-04-09 06:00] VITALS: BP 133/68
[2019-04-09] MEDS ORDERED: MACR100C43 PO (08:06)
[2019-04-09] MEDS: MIRALAX *UNIT DOSE* 17GM PACKET PO SCH (08:39)
[2019-04-09] MEDS: NITROFURANTOIN (MACROBID) 100 MG CAP PO SCH ×2 (08:39→21:24)
[2019-04-09] MEDS: MOM 30ML SUSPENSION UDC PO SCH (08:39)
[2019-04-09] MEDS: ASCORBIC ACID 500 MG TAB PO SCH ×2 (08:39→21:24)
[2019-04-09] MEDS: METAMUCIL (PSYLLIUM) PACKET PO SCH (08:40)
[2019-04-09 14:00] VITALS: BP 102/69
[2019-04-09] MEDS ORDERED: ACETAMINOPHEN TAB 650MG DOSE (2X325MG) PO PRN (17:30)
--- NOTE | 2019-04-09 19:07 | CR ---
DATE OF CONSULTATION: 04/08/2019 The patient indicates that she has back pain, but the pain in the right leg is better. Still has some tingling in bottom of the foot on the right side. Nursing tells me that they have continued to have issues with urinary retention and she was recently straight cath for more than 500 mL and 900 mL this morning. I talked in some more detail with the patient about her urinary habits. She tells me that she has had symptoms going on for approximately 6 years where had trouble initiating a urinary stream. She reports that she had talk to a data processing supervisor at [employer] about the situation. 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 She has not had any further workup since then. She has been out of bed with physical therapy. She has had some back pain. No bowel movement yet. EXAMINATION: Drain output from 6 a.m. to 4 p.m. 50 mL. CLINICAL EXAMINATION: She is alert, oriented and cooperative. Mood and affect seem appropriate. She is able to roll. The wound is clean and dry. The drain was removed. Rectal examination: The patient reported sensation and seemed to have good rectal tone and she did seem to have voluntary contracture of the sphincter. Extremities: Did appreciate light touch. Motor intact. No abdominal distension. Bladder scan 15 minutes ago 999 mL. IMPRESSION: Persisting urinary retention. status post spinal fusion. RECOMMENDATIONS: This does not seem to be consistent with cauda equina syndrome given the history; however, I did contact urology, Dr. Friedman and talked to her about the patient's situation. Dr. Friedman has suggested placement of the urinary catheter to be left in place for bladder rest for approximately one week period of time and that the patient follow up with urology in one week, preferably a morning appointment so that they can implement the trial of voiding without the catheter. We will plan to implement the recommendations of urology in that respect..
[2019-04-09 22:00] VITALS: BP 102/56
[2019-04-10] MEDS: PERCOCET 5MG/325MG TAB PO PRN ×3 (02:20→10:39)
[2019-04-10 06:00] VITALS: BP 102/61
[2019-04-10] MEDS: MOM 30ML SUSPENSION UDC PO SCH (08:59)
[2019-04-10] MEDS: NITROFURANTOIN (MACROBID) 100 MG CAP PO SCH ×2 (08:59→20:00)
[2019-04-10] MEDS: MIRALAX *UNIT DOSE* 17GM PACKET PO SCH (08:59)
[2019-04-10] MEDS: METAMUCIL (PSYLLIUM) PACKET PO SCH (08:59)
[2019-04-10] MEDS: ASCORBIC ACID 500 MG TAB PO SCH ×2 (08:59→20:00)
[2019-04-10] MEDS: CYCLOBENZAPRINE 10 MG TAB PO PRN ×2 (11:29→18:44)
[2019-04-10] MEDS ORDERED: NORCO, ANEXSIA 5/325MG TABLET (HYDROcodone/ACETAMINOPHEN) PO PRN (13:15)
[2019-04-10] MEDS: VENLAFAXINE **XR** 75MG CAPSULE PO SCH (13:44)
[2019-04-10 14:00] VITALS: BP 96/63
[2019-04-10] MEDS: NORCO, ANEXSIA 5/325MG TABLET (HYDROcodone/ACETAMINOPHEN) PO PRN ×2 (14:48→20:01)
[2019-04-10] MEDS ORDERED: MAGNESIUM CITRATE 300 ML BTL PO ONE (18:30)
[2019-04-10 22:00] VITALS: BP 97/63
[2019-04-11] MEDS ORDERED: PERCOCET 5MG/325MG TAB PO PRN (01:30)
[2019-04-11] MEDS: PERCOCET 5MG/325MG TAB PO PRN ×3 (01:50→12:06)
[2019-04-11] MEDS ORDERED: PERC5TAB12 PO (05:57)
[2019-04-11 06:00] VITALS: BP 103/59
[2019-04-11] MEDS ORDERED: MAGNESIUM CITRATE 300 ML BTL PO ONE ×2 (08:00)
[2019-04-11] MEDS: MOM 30ML SUSPENSION UDC PO SCH (09:34)
[2019-04-11] MEDS: METAMUCIL (PSYLLIUM) PACKET PO SCH (09:35)
[2019-04-11] MEDS: MIRALAX *UNIT DOSE* 17GM PACKET PO SCH (09:35)
[2019-04-11] MEDS: ASCORBIC ACID 500 MG TAB PO SCH (09:37)
[2019-04-11] MEDS: NITROFURANTOIN (MACROBID) 100 MG CAP PO SCH (09:37)
[2019-04-11] MEDS: VENLAFAXINE **XR** 75MG CAPSULE PO SCH (09:37)
[2019-04-11] MEDS ORDERED: MAGNESIUM CITRATE 300 ML BTL PO PRN (10:00)
--- NOTE | 2019-04-14 10:36 | DSES ---
DATE OF ADMISSION: 04/07/2019 DATE OF DISCHARGE: 04/11/2019 ATTENDING PHYSICIAN: Dr. Maik Denney ADMISSION DIAGNOSIS: Lower back pain with right lower extremity radiculopathy. OTHER DIAGNOSIS: Depression. DISCHARGE DIAGNOSIS: Low back pain with right lower extremity radiculopathy status post right unilateral laminectomy with posterior fusion of L4-5 and S1 with pedicle screws and iliac donor bone graft. HISTORY: The patient is a 53-year-old female with progressively worsening low back pain radiating down into the right lower extremity. She failed to improve with conservative measures. She continued to have symptoms with weightbearing activities and activities of daily living. She consented for a right unilateral laminectomy with posterior fusion at L4-L5 and S1 with pedicle screws and iliac donor bone graft with Dr. Denney for her continued symptoms. OPERATION PERFORMED: Lumbar laminectomy and posterior spinal intertransverse instrumented fusion, specifically L4 right unilateral laminectomy for decompression of the thecal sac and exiting nerve roots, L5 right unilateral laminectomy for decompression of the thecal sac and transversing nerve roots, S1 right unilateral laminectomy for decompression of the S1 nerve root and thecal sac, L4-5 posterior intertransverse arthrodesis, L5-S1 posterior intertransverse arthrodesis additional level, posterior segmental instrumentation bilateral pedicle screws at L4-L5 and S1, left iliac crest bone graft harvested through separate fascial incision morselized type along with donor and local graft. HOSPITAL COURSE: The patient underwent a right unilateral laminectomy with posterior spinal fusion at L4-5 and L5-S1. Pedicle screw placement with iliac bone graft. Surgery was done under general anesthesia and was without complication. The patient did develop urinary retention throughout her hospital stay and did have straight catheterization performed. Urology was consulted and recommendation was for placement of a catheter and for the patient to followup in their office upon discharge. The patient's symptoms did improve during her hospital stay. She was discharged on oral pain medications and will resume her preoperative medications and diet. She will use her thromboembolic deterrent stockings as directed to prevent deep venous thrombosis. She will followup in our office in 7-10 days for a wound check and reevaluation. The patient is encouraged to contact our office sooner if there is any increase in pain, redness, drainage, numbness, tingling or radiating pain into the extremities, change in her bowel or bladder control issues, fever greater than 101 degrees or any other concerns. Please see medical record for additional details. MTDD
== END 2019-04-11 14:35 | disposition home or self-care (01) | DRG 304 ==
LOC: M OR 05:44 → M MS5PR 17:30
PROVIDERS: ADMIT Orthopaedic Surgery; ATTEND Orthopaedic Surgery
PROC: 01NB0ZZ Release Lumbar Nerve, Open Approach (ICD-10-PCS; 2019-04-07)
PROC: 0SG30AJ Fusion of Lumbosacral Joint with Interbody Fusion Device, Posterior Approach, Anterior Column, Open Approach (ICD-10-PCS; principal; 2019-04-07 07:30)
DX: M47.27 Other spondylosis with radiculopathy, lumbosacral region (principal); F32.9 Major depressive disorder, single episode, unspecified; R33.9 Retention of urine, unspecified; Z88.2 Allergy status to sulfonamides; Z88.0 Allergy status to penicillin; Z79.899 Other long term (current) drug therapy

== ENCOUNTER → 2019-04-23 | Outpatient (CLI) | payer OTHER ==
[~2019-04-23] MED LIST changes: +MACR100C43 PO
--- NOTE | 2019-04-23 20:08 | REP ---
Digital diagnostic unilateral left breast mammography with CAD, 3-D tomography, and focused left breast sonography: History: Left breast lump present for 10 days. Question trauma. Comparison mammography November 19, 2018. Mammographic findings: Subareolar breast parenchyma is heterogeneously dense. A skin marker is affixed to the skin in the site of the palpable lump which projects in the medial and superior quadrant. No density is seen in this location. No mass or microcalcification is noted here or elsewhere. No spiculation or worrisome skin changes seen. No change mammographically from the prior comparison mammogram. Sonographic findings: Left breast is scanned from 10 o'clock to 12 o'clock over the area of palpable interest. Heterogeneous fibroglandular background echotexture is seen by sonography. No cyst, mass, acoustic shadowing or architectural distortion is seen. Impression: BIRADS category 1 negative left breast findings. This negative report should not dissuade one from biopsy of a palpable lump depending on its clinical characteristics. Clinical follow-up is advised. BIRADS 1: BI-RADS/ACR category 1 mammogram. Negative Mammogram. This mammogram was interpreted with the aid of an FDA-approved computer-aided detection system. The patient states she had a clinical breast exam in April 2019 The patient letter being requested is m#[id number]. Electronically Signed by Richard Argueta MD 04/23/2019 09:17 P
== END ==
LOC: M RAD 13:14
PROVIDERS: ATTEND Nurse Practitioner Family
DX: N63.20 Unspecified lump in the left breast, unspecified quadrant (principal)
CPT/HCPCS: 76642; 77065; G0279

== ENCOUNTER → 2019-05-23 | Outpatient (CLI) | payer OTHER ==
[2019-05-23 18:40] LABS: BASO # 0.1 10^3/uL (0.0-0.2); BASO % 1.4 % (0.0-1.0); EOS # 0.2 10^3/uL (0.0-0.5); EOS % 4.6 % (0.0-3.0); HEMATOCRIT 32.2 % (36.0-47.0); HEMOGLOBIN 10.1 g/dl (12.0-15.5); LYMPH # 2.3 10^3/uL (1.5-5.0); LYMPH % 52.4 % (24.0-44.0); MEAN CORPUSCULAR HEMOGLOBIN 27.9 pg (27.0-33.0); MEAN CORPUSCULAR HGB CONC 31.4 g/dl (32.0-36.5); MONO # 0.3 10^3/uL (0.0-0.8); MONO % 7.4 % (0.0-5.0); NEUTROPHILS # 1.5 10^3/uL (1.5-8.5); PLATELET COUNT, AUTOMATED 344 10^3/uL (150-450); RED BLOOD COUNT 3.62 10^6/uL (4.00-5.40); WHITE BLOOD COUNT 4.3 10^3/uL (4.0-10.0)
[2019-05-23 19:09] LABS: ALBUMIN 3.8 GM/DL (3.2-5.2); ALT/SGPT 18 U/L (12-78); BILIRUBIN,TOTAL 0.2 MG/DL (0.2-1.0); BLOOD UREA NITROGEN 10 MG/DL (7-18); CALCIUM LEVEL 8.8 MG/DL (8.5-10.1); CARBON DIOXIDE LEVEL 25 MEQ/L (21-32); CHLORIDE LEVEL 109 MEQ/L (98-107); CHOLESTEROL LEVEL 238 MG/DL (<200); CHOLESTEROL RISK RATIO 3.131 (<5); CREATININE FOR GFR 0.69 MG/DL (0.55-1.30); FREE T4 0.75 NG/DL (0.76-1.46); GLOMERULAR FILTRATION RATE > 60.0 (>51); GLUCOSE, FASTING 79 MG/DL (70-100); HDL CHOLESTEROL 76 MG/DL (>40); LDL CHOLESTEROL 136 MG/DL (<100); NON-HDL-C 162 MG/DL; POTASSIUM SERUM 3.6 MEQ/L (3.5-5.1); SODIUM LEVEL 142 MEQ/L (136-145); TOTAL PROTEIN 6.9 GM/DL (6.4-8.2); TRIGLYCERIDES LEVEL 131 MG/DL (<150)
[2019-05-23 19:13] LABS: TOTAL 25(OH) VITAMIN D 25.3 NG/ML (30.0-100.0)
[2019-05-23 19:15] LABS: FOLLICLE STIMULATING HORMONE 76.1 mIU/mL; LUTEINIZING HORMONE 40.7 mIU/mL; PROGESTERONE 0.21 NG/ML
[2019-05-23 19:22] LABS: APPEARANCE, URINE CLEAR (CLEAR); BACTERIA, URINE AUTO NEGATIVE (NEGATIVE); BILIRUBIN, URINE AUTO NEGATIVE (NEGATIVE); BLOOD, URINE BLOOD NEGATIVE (NEGATIVE); COLOR, URINE YELLOW (YELLOW); GLUCOSE, URINE (UA) AUTO NEGATIVE (NEGATIVE); KETONE, URINE AUTO NEGATIVE (NEGATIVE); LEUKOCYTE ESTERASE, URINE AUTO NEGATIVE (NEGATIVE); MUCUS, URINE SMALL (NEGATIVE); NITRITE, URINE AUTO NEGATIVE (NEGATIVE); PROTEIN, URINE AUTO NEGATIVE (NEGATIVE); RBC, URINE AUTO 0 /HPF (0-3); SPECIFIC GRAVITY URINE AUTO 1.008 (1.002-1.035); SQUAMOUS EPITHELIAL CELL UR AU 0 /HPF (0-6); UROBILINOGEN, URINE AUTO 0.2 mg/dL (0.0-2.0); WBC, URINE AUTO 2 /HPF (0-3)
[2019-05-23 19:28] LABS: HCG, SERUM QUALITATIVE NEGATIVE (NEGATIVE)
[2019-05-23 19:36] LABS: HEMOGLOBIN A1c 5.4 %
[2019-05-27 00:07] LABS: ESTROGENS TOTAL 47 pg/mL (.); Lyme Disease IgG/IgM Antibodie <0.91 ISR (0.00-0.90); Lyme Disease IgM Ab Quantitati <0.80 index (0.00-0.79)
== END ==
LOC: M LAB 17:52
PROVIDERS: ATTEND Family Medicine
DX: N95.8 Other specified menopausal and perimenopausal disorders (principal); Z13.228 Encounter for screening for other metabolic disorders

== ENCOUNTER → 2019-07-29 | Outpatient (REF) | payer OTHER ==
[2019-07-29 12:18] LABS: HCG, SERUM QUALITATIVE NEGATIVE (NEGATIVE)
[2019-07-29 12:27] LABS: CHOLESTEROL LEVEL 201 MG/DL (<200); CHOLESTEROL RISK RATIO 2.421 (<5); FOLLICLE STIMULATING HORMONE 78.3 mIU/mL; FREE T4 0.84 NG/DL (0.76-1.46); HDL CHOLESTEROL 83 MG/DL (>40); LDL CHOLESTEROL 107 MG/DL (<100); LUTEINIZING HORMONE 39.2 mIU/mL; NON-HDL-C 118 MG/DL; PROGESTERONE 0.21 NG/ML; TOTAL 25(OH) VITAMIN D 28.7 NG/ML (30.0-100.0); TRIGLYCERIDES LEVEL 57 MG/DL (<150)
[2019-08-02 00:16] LABS: ESTROGENS TOTAL 79 pg/mL (.); Lyme Disease IgG/IgM Antibodie <0.91 ISR (0.00-0.90); Lyme Disease IgM Ab Quantitati <0.80 index (0.00-0.79)
== END ==
LOC: M LAB REF 11:54
PROVIDERS: ATTEND Family Medicine
DX: Z13.228 Encounter for screening for other metabolic disorders (principal); N95.8 Other specified menopausal and perimenopausal disorders

== ENCOUNTER → 2019-08-16 | Outpatient (REF) | payer OTHER ==
[~2019-08-16] MED LIST changes: -VALA1TAB2 PO; +VALA1TAB64 PO
[2019-08-16 20:37] LABS: INFLUENZA A AMPLIFICATION NEGATIVE (NEGATIVE); INFLUENZA B AMPLIFICATION NEGATIVE (NEGATIVE)
== END ==
LOC: M LAB REF 13:48
PROVIDERS: ATTEND Nurse Practitioner Family
DX: R50.9 Fever, unspecified (principal)

== ENCOUNTER → 2019-11-04 | Outpatient (REF) | payer OTHER ==
[~2019-11-04] MED LIST changes: +VALA1TAB5 PO; -VALA1TAB64 PO
[2019-11-04 21:01] LABS: APPEARANCE, URINE CLOUDY (CLEAR); BACTERIA, URINE AUTO 1+ (NEGATIVE); BILIRUBIN, URINE AUTO NEGATIVE (NEGATIVE); BLOOD, URINE BLOOD 1+ (NEGATIVE); COLOR, URINE YELLOW (YELLOW); GLUCOSE, URINE (UA) AUTO NEGATIVE (NEGATIVE); KETONE, URINE AUTO NEGATIVE (NEGATIVE); LEUKOCYTE ESTERASE, URINE AUTO 3+ (NEGATIVE); MUCUS, URINE SMALL (NEGATIVE); NITRITE, URINE AUTO NEGATIVE (NEGATIVE); PROTEIN, URINE AUTO NEGATIVE (NEGATIVE); RBC, URINE AUTO 2 /HPF (0-3); SPECIFIC GRAVITY URINE AUTO 1.003 (1.002-1.035); SQUAMOUS EPITHELIAL CELL UR AU 0 /HPF (0-6); UROBILINOGEN, URINE AUTO 0.2 mg/dL (0.0-2.0); WBC, URINE AUTO 54 /HPF (0-3)
== END ==
LOC: M LAB REF 20:17 → M LAB 20:17
PROVIDERS: ATTEND Physician Assistant Medical
DX: N39.0 Urinary tract infection, site not specified (principal)

== ENCOUNTER → 2020-02-06 | Outpatient (REF) | payer OTHER ==
[2020-02-06 18:23] LABS: BASO % 0.9 % (0.0-1.0); EOS # 0.1 10^3/uL (0.0-0.5); EOS % 2.6 % (0.0-3.0); HEMOGLOBIN 11.1 g/dl (12.0-15.5); LYMPH # 2.7 10^3/uL (1.5-5.0); MEAN CORPUSCULAR HEMOGLOBIN 30.1 pg (27.0-33.0); MEAN CORPUSCULAR HGB CONC 32.6 g/dl (32.0-36.5); MEAN CORPUSCULAR VOLUME 92.1 fl (80.0-96.0); MONO # 0.3 10^3/uL (0.0-0.8); MONO % 6.4 % (0.0-5.0); NEUTROPHILS # 1.4 10^3/uL (1.5-8.5); NEUTROPHILS % 30.1 % (36.0-66.0); PLATELET COUNT, AUTOMATED 254 10^3/uL (150-450); RED BLOOD COUNT 3.69 10^6/uL (4.00-5.40); WHITE BLOOD COUNT 4.6 10^3/uL (4.0-10.0)
[2020-02-06 18:34] LABS: ALBUMIN 3.8 GM/DL (3.2-5.2); ALT/SGPT 23 U/L (12-78); BILIRUBIN,TOTAL 0.4 MG/DL (0.2-1.0); BLOOD UREA NITROGEN 18 MG/DL (7-18); CALCIUM LEVEL 8.6 MG/DL (8.5-10.1); CARBON DIOXIDE LEVEL 28 MEQ/L (21-32); CHLORIDE LEVEL 108 MEQ/L (98-107); CREATININE FOR GFR 0.68 MG/DL (0.55-1.30); GLOMERULAR FILTRATION RATE > 60.0 (>51); GLUCOSE, FASTING 84 MG/DL (70-100); POTASSIUM SERUM 3.8 MEQ/L (3.5-5.1); SODIUM LEVEL 139 MEQ/L (136-145); TOTAL PROTEIN 6.6 GM/DL (6.4-8.2)
[2020-02-06 18:36] LABS: FOLLICLE STIMULATING HORMONE 78.8 mIU/mL; LUTEINIZING HORMONE 40.1 mIU/mL; PROGESTERONE 0.21 NG/ML
[2020-02-06 18:37] LABS: MONO SCRN NEGATIVE (NEGATIVE)
[2020-02-13 05:10] LABS: EBV AB TO NUCLEAR ANTIGEN >600.0 U/mL (0.0-17.9); EBV VIRAL CAPSID AG IgM <36.0 U/mL (0.0-35.9); ESTROGENS TOTAL 61 pg/mL (.); Lyme Disease IgG/IgM Antibodie <0.91 ISR (0.00-0.90); Lyme Disease IgM Ab Quantitati <0.80 index (0.00-0.79)
== END ==
LOC: M LAB REF 15:59
PROVIDERS: ATTEND Family Medicine
DX: Z78.0 Asymptomatic menopausal state (principal); R53.81 Other malaise

== ENCOUNTER → 2020-03-15 | Outpatient (REF) | payer OTHER ==
[2020-03-15 20:59] LABS: APPEARANCE, URINE CLEAR (CLEAR); BACTERIA, URINE AUTO NEGATIVE (NEGATIVE); BILIRUBIN, URINE AUTO NEGATIVE (NEGATIVE); BLOOD, URINE BLOOD NEGATIVE (NEGATIVE); COLOR, URINE COLORLESS (YELLOW); GLUCOSE, URINE (UA) AUTO NEGATIVE (NEGATIVE); KETONE, URINE AUTO NEGATIVE (NEGATIVE); LEUKOCYTE ESTERASE, URINE AUTO 3+ (NEGATIVE); NITRITE, URINE AUTO NEGATIVE (NEGATIVE); PROTEIN, URINE AUTO NEGATIVE (NEGATIVE); RBC, URINE AUTO 0 /HPF (0-3); SPECIFIC GRAVITY URINE AUTO 1.001 (1.002-1.035); SQUAMOUS EPITHELIAL CELL UR AU 0 /HPF (0-6); UROBILINOGEN, URINE AUTO 0.2 mg/dL (0.0-2.0); WBC, URINE AUTO 5 /HPF (0-3)
== END ==
LOC: M LAB 20:22
PROVIDERS: ATTEND Physician Assistant Medical
DX: N39.0 Urinary tract infection, site not specified (principal)

== ENCOUNTER 2021-06-05 12:48 | Emergency (ER) | payer OTHER ==
[~2021-06-05] VITALS: Ht 157.5 cm; Wt 53.5 kg
[~2021-06-05 12:48] MED LIST changes: +CYAN500T14 PO; -CYAN500T8 PO; +TERC0.4C10 PV; -TERC0.4C2 PV
[2021-06-05] MEDS ORDERED: AMIT10TA7 (13:05)
[2021-06-05] MEDS ORDERED: BENZONATATE 100MG CAPSULE PO ONE (14:35)
[2021-06-05] MEDS ORDERED: ONDANSETRON 4 MG ORAL DISINTEGRATING TAB PO ONE (14:35)
[2021-06-05 14:37] LABS: RSV AMPLIFICATION NEGATIVE (NEGATIVE)
--- NOTE | 2021-06-05 14:51 | REP ---
INDICATION: cough, SOB. COMPARISON: 02/24/2019 TECHNIQUE: Portable FINDINGS: The technique utilized in obtaining the radiograph has magnified the cardiac silhouette and accentuated the interstitial markings. The superior mediastinal structures are midline. The cardiac silhouette is unremarkable in size, shape, and position. The diaphragmatic surfaces of the lungs are regular, and the costophrenic angles are clear. The pulmonary yadav are clear. The imaged osseous structures are intact. IMPRESSION: There is no acute cardiopulmonary disease. <Electronically signed by Roger Bella > 06/05/21 [id number]
[2021-06-05] MEDS ORDERED: ONDA4TAB6 PO (15:14)
[2021-06-05] MEDS ORDERED: PROAAER10 INH (15:14)
[2021-06-05] MEDS ORDERED: TESS100C PO (15:14)
[2021-06-05] MEDS ORDERED: FLON1SPR NARES (15:16)
[2021-06-05 15:39] VITALS: BP 123/90
== END 2021-06-05 15:38 | disposition home or self-care (01) ==
LOC: M ED 12:48
DX: R05 Cough (principal); R53.83 Other fatigue; R06.00 Dyspnea, unspecified; Z88.0 Allergy status to penicillin; Z88.1 Allergy status to other antibiotic agents; Z88.2 Allergy status to sulfonamides
CPT/HCPCS: 71045; 87631; 99283; Q0162

== ENCOUNTER → 2021-06-15 | Outpatient (CLI) | payer OTHER ==
[~2021-06-15] MED LIST changes: +AMIT10TA7; +FLON1SPR NARES; +ONDA4TAB6 PO; +PROAAER10 INH; +TESS100C PO
--- NOTE | 2021-06-15 15:34 | REP ---
INDICATION: R FOOT DORSAL GROWTH. COMPARISON: Digitized plain film examination from an outside institution of 10/06/2016 which is the latest prior a pre operative exam. TECHNIQUE: Four views FINDINGS: Since the last examination there has been for internal fixation of the 1st tarsal metatarsal joint. And internal fixation plate is seen medially with 3 fixing screws and there is a single fixation screw not applied to the plate. The alignment appears to be near anatomical. The deformity seen previously is no longer evident. There is no evidence of an acute fracture. 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 IMPRESSION: Status post ORIF as described above with other chronic changes. If a soft tissue mass is of clinical concern then a pre and post gadolinium enhanced MRI is recommended. <Electronically signed by Roger Bella > 06/15/21 [id number]
== END ==
LOC: M RAD 15:08
PROVIDERS: ATTEND Physician Assistant Medical
DX: M89.272 Other disorders of bone development and growth, left ankle and foot (principal)

== ENCOUNTER → 2021-07-06 | Outpatient (REF) | payer OTHER | LOC: M SFHCWAGY 13:26 | PROVIDERS: ATTEND Specialist | DX: Z01.419 Encounter for gynecological examination (general) (routine) without abnormal findings (principal); Z77.9 Other contact with and (suspected) exposures hazardous to health ==

== ENCOUNTER → 2021-07-06 | Outpatient (CLI) | payer OTHER | LOC: M WHC 10:35 | PROVIDERS: ATTEND Specialist | DX: Z12.31 Encounter for screening mammogram for malignant neoplasm of breast (principal); M85.80 Other specified disorders of bone density and structure, unspecified site; Z53.9 Procedure and treatment not carried out, unspecified reason ==

== ENCOUNTER → 2021-12-12 | Outpatient (REF) | payer OTHER ==
[~2021-12-12] MED LIST changes: +LOSA25TA13 PO; -LOSA25TA14 PO
== END ==
LOC: M LAB REF 15:38
PROVIDERS: ATTEND Podiatrist
DX: M67.471 Ganglion, right ankle and foot (principal)

== ENCOUNTER → 2021-12-22 | Outpatient (CLI) | payer OTHER | LOC: M SOG 10:04 | PROVIDERS: ATTEND Physician Assistant | DX: M79.645 Pain in left finger(s) (principal) ==

== ENCOUNTER → 2021-12-30 | Outpatient (REF) | payer OTHER | LOC: M LAB REF 21:35 | PROVIDERS: ATTEND Physician Assistant Medical | DX: R50.9 Fever, unspecified (principal); R11.10 Vomiting, unspecified; R19.7 Diarrhea, unspecified ==

== ENCOUNTER → 2022-04-25 | Outpatient (CLI) | payer OTHER ==
[2022-04-25 10:10] LABS: BASO # 0.1 10^3/uL (0.0-0.2); BASO % 1.2 % (0.0-1.0); EOS # 0.4 10^3/uL (0.0-0.5); EOS % 8.4 % (0.0-3.0); HEMATOCRIT 37.5 % (36.0-47.0); HEMOGLOBIN 11.8 g/dl (12.0-15.5); LYMPH # 2.1 10^3/uL (1.5-5.0); LYMPH % 50.6 % (24.0-44.0); MEAN CORPUSCULAR HEMOGLOBIN 28.8 pg (27.0-33.0); MEAN CORPUSCULAR HGB CONC 31.5 g/dl (32.0-36.5); MEAN CORPUSCULAR VOLUME 91.5 fl (80.0-96.0); MONO # 0.2 10^3/uL (0.0-0.8); MONO % 5.3 % (2.0-8.0); NEUTROPHILS # 1.5 10^3/uL (1.5-8.5); NEUTROPHILS % 34.5 % (36.0-66.0); PLATELET COUNT, AUTOMATED 261 10^3/uL (150-450); WHITE BLOOD COUNT 4.2 10^3/uL (4.0-10.0)
[2022-04-25 10:44] LABS: ALBUMIN 3.7 GM/DL (3.2-5.2); ALT/SGPT 30 U/L (12-78); BILIRUBIN,TOTAL 0.3 MG/DL (0.2-1.0); BLOOD UREA NITROGEN 9 MG/DL (7-18); CALCIUM LEVEL 9.1 MG/DL (8.5-10.1); CARBON DIOXIDE LEVEL 27 MEQ/L (21-32); CHLORIDE LEVEL 109 MEQ/L (98-107); GLOMERULAR FILTRATION RATE > 60.0 (>51); GLUCOSE, FASTING 90 MG/DL (70-100); SODIUM LEVEL 139 MEQ/L (136-145); TOTAL PROTEIN 6.1 GM/DL (6.4-8.2)
[2022-04-25 11:35] LABS: FOLATE 11.4 NG/ML; TOTAL 25(OH) VITAMIN D 47.1 NG/ML (30.0-100.0); VITAMIN B12 LEVEL 373 PG/ML
== END ==
LOC: M LAB 07:44
PROVIDERS: ATTEND Psychiatry & Neurology Neurology
DX: R51.9 Headache, unspecified (principal)

== ENCOUNTER → 2022-04-25 | Outpatient (CLI) | payer OTHER | LOC: M RAD 07:41 | PROVIDERS: ATTEND Physician Assistant | DX: J32.8 Other chronic sinusitis (principal) ==

== ENCOUNTER → 2022-04-26 | Outpatient (CLI) | payer OTHER | LOC: M WHC 14:35 | PROVIDERS: ATTEND Physician Assistant | DX: Z12.31 Encounter for screening mammogram for malignant neoplasm of breast (principal) ==

== ENCOUNTER → 2022-06-08 | Outpatient (CLI) | payer OTHER ==
[~2022-06-08] MED LIST changes: +ADDE30CA3 PO; +ALPR1TAB3 PO; +AZEL1SPR3; +CETI-24 PO; +D3 S1CAP3 PO; +DOXE50CA PO; +GABA-282 PO; +HYDR-3363 PO; +MELA5TAB47 PO; +TIZA10TA PO; +TOPI100T9 PO; +VITMTA PO; +WELLTAB40 PO; +ZINC30CA PO
== END ==
LOC: M EKG 11:55
PROVIDERS: ATTEND Anesthesiology
DX: Z20.828 Contact with and (suspected) exposure to other viral communicable diseases (principal); Z11.59 Encounter for screening for other viral diseases

== ENCOUNTER 2022-06-12 09:19 | Day surgery (SDC) | payer OTHER ==
[~2022-06-12] VITALS: Ht 160 cm; Wt 52.2 kg
[~2022-06-12 09:19] MED LIST changes: +MIDAZOLAM INJ 2MG/2ML VIAL (J2250 PER 1MG) As Ordered ONE; +fentaNYL 100 MCG/2 ML INJECTION As Ordered ONE
[2022-06-12] MEDS ORDERED: SCOPOLAMINE 1MG TRANSDERMAL PATCH TOP ONE (09:40)
[2022-06-12] MEDS ORDERED: LR 1,000 ML IV SCH ×2 (10:00→13:25)
[2022-06-12] MEDS ORDERED: propofoL 200 MG/20 ML VIAL As Ordered ONE (10:42)
[2022-06-12] MEDS ORDERED: ROCURONIUM BROMIDE 50MG/5ML VIAL As Ordered ONE (10:42)
[2022-06-12] MEDS ORDERED: LIDOCAINE 2% 100MG/5ML SDV (FOR ANES.) As Ordered ONE (10:43)
[2022-06-12] MEDS ORDERED: ONDANSETRON 4MG 2ML VIAL As Ordered ONE (10:49)
[2022-06-12] MEDS ORDERED: COCAINE 4% 4ML NASAL SOLUTION BTL As Ordered ONE (11:23)
[2022-06-12] MEDS ORDERED: METHYLENE BLUE 0.5% (5MG/ML) 10 ML AMP (PROVAYBLUE) As Ordered ONE (11:24)
[2022-06-12] MEDS ORDERED: LIDOCAINE W/EPINEPHRINE 1% 20ML VIAL As Ordered ONE (11:24)
[2022-06-12] MEDS ORDERED: OXYMETAZOLINE 0.05% NASAL SPRAY (AFRIN) As Ordered ONE ×2 (11:24→12:44)
[2022-06-12] MEDS ORDERED: ACETAMINOPHEN 1000MG 100ML IV BAG As Ordered ONE (12:12)
[2022-06-12] MEDS ORDERED: SUGAMMADEX SODIUM 500 MG/5 ML VIAL (BRIDION) As Ordered ONE (12:13)
[2022-06-12] MEDS ORDERED: METOCLOPRAMIDE INJ 10MG/2ML VIAL As Ordered ONE (12:15)
[2022-06-12] MEDS ORDERED: fentaNYL 100 MCG/2 ML INJECTION IV PRN (13:25)
[2022-06-12] MEDS ORDERED: oxyCODONE 5MG TAB PO PRN (13:25)
[2022-06-12] MEDS ORDERED: ONDANSETRON 4MG 2ML VIAL IV PRN (13:25)
[2022-06-12] MEDS ORDERED: HYDROcodone/APAP LIQUID 7.5-325MG 15ML UDC (LORTAB ELIXIR) PO PRN (13:45)
[2022-06-12 14:49] VITALS: BP 129/80
== END 2022-06-12 15:21 | disposition home or self-care (01) ==
LOC: M SDC 09:19
PROVIDERS: ATTEND Otolaryngology
DX: J32.8 Other chronic sinusitis (principal); J32.1 Chronic frontal sinusitis; R04.0 Epistaxis; F41.9 Anxiety disorder, unspecified; F32.A Depression, unspecified; G40.909 Epilepsy, unspecified, not intractable, without status epilepticus; Z79.899 Other long term (current) drug therapy; Z88.0 Allergy status to penicillin; Z88.2 Allergy status to sulfonamides; Z88.8 Allergy status to other drugs, medicaments and biological substances
CPT/HCPCS: 30801; 31255; 31267; 88305; C9046; J0131; J1100; J2250; J2405; J2765; J3010

== ENCOUNTER → 2022-06-28 | Outpatient (REF) | payer OTHER ==
[~2022-06-28] MED LIST changes: -MIDAZOLAM INJ 2MG/2ML VIAL (J2250 PER 1MG) As Ordered ONE; -fentaNYL 100 MCG/2 ML INJECTION As Ordered ONE
== END ==
LOC: M LAB REF 12:22
PROVIDERS: ATTEND Physician Assistant
DX: B34.9 Viral infection, unspecified (principal)

== ENCOUNTER → 2022-09-28 | Outpatient (REF) | payer OTHER ==
[2022-09-28 17:58] LABS: APPEARANCE, URINE MANUAL CLEAR (CLEAR); BILIRUBIN, URINE MANUAL OBSCURED (NEGATIVE); BLOOD URINE MANUAL OBSCURED (NEGATIVE); COLOR, URINE MANUAL ORANGE (YELLOW); GLUCOSE, URINE (UA) MANUAL OBSCURED mg/dL (NEGATIVE); KETONE, URINE MANUAL OBSCURED mg/dL (NEGATIVE); LEUKOCYTE ESTERASE, URINE MAN OBSCURED (NEGATIVE); NITRITE, URINE MANUAL OBSCURED (NEGATIVE); PH,URINE MAN OBSCURED UNITS (5.0 - 7.0); PROTEIN, URINE MANUAL OBSCURED mg/dL (NEGATIVE); SPECIFIC GRAVITY,URINE MANUAL 1.013 (1.002-1.035); UROBILINOGEN, URINE MANUAL OBSCURED mg/dl (NORMAL)
[2022-09-28 20:16] LABS: RBC, URINE NONE SEEN /hpf (0-3); SQUAMOUS EPITHELIAL CELL URINE NONE SEEN /hpf (SMALL AMT)
[2022-09-28 20:17] LABS: BACTERIA, URINE NONE SEEN; HYALINE CAST, URINE NONE SEEN /lpf (0-1)
== END ==
LOC: M LAB REF 16:33
PROVIDERS: ATTEND Physician Assistant
DX: N39.0 Urinary tract infection, site not specified (principal)

== ENCOUNTER → 2022-11-28 | Outpatient (REF) | payer OTHER, MEDICAID ==
[2022-11-28 17:28] LABS: THYROID STIMULATING HORMONE 2.744 uIU/ML (0.55-4.78)
[2022-11-28 17:29] LABS: ALBUMIN 3.5 G/DL (3.2-5.2); ALKALINE PHOSPHATASE 47 U/L (46-116); ALT/SGPT 32 U/L (7.0-40); AST/SGOT 33 U/L (<34); BILIRUBIN,TOTAL 0.3 MG/DL (0.3-1.2); BLOOD UREA NITROGEN 14 MG/DL (9-23); CALCIUM LEVEL 8.7 MG/DL (8.5-10.1); CARBON DIOXIDE LEVEL 28 MMOL/L (20-31); CHLORIDE LEVEL 104 MMOL/L (98-107); CREATININE FOR GFR 0.65 MG/DL (0.55-1.30); GLOMERULAR FILTRATION RATE > 60.0 (>51); GLUCOSE, FASTING 82 MG/DL (60-100); POTASSIUM SERUM 4.5 MMOL/L (3.5-5.1); SODIUM LEVEL 137 MMOL/L (136-145); TOTAL PROTEIN 6.1 G/DL (5.7-8.2)
[2022-11-28 17:47] LABS: BASO % 0.8 % (0.0-1.0); EOS # 0.1 10^3/uL (0.0-0.5); EOS % 2.8 % (0.0-3.0); HEMATOCRIT 37.8 % (36.0-47.0); HEMOGLOBIN 11.8 g/dl (12.0-15.5); LYMPH # 1.6 10^3/uL (1.5-5.0); LYMPH % 41.7 % (24.0-44.0); MEAN CORPUSCULAR HEMOGLOBIN 27.9 pg (27.0-33.0); MEAN CORPUSCULAR HGB CONC 31.2 g/dl (32.0-36.5); MEAN CORPUSCULAR VOLUME 89.4 fl (80.0-96.0); MONO # 0.2 10^3/uL (0.0-0.8); MONO % 5.4 % (2.0-8.0); NEUTROPHILS # 1.9 10^3/uL (1.5-8.5); PLATELET COUNT, AUTOMATED 311 10^3/uL (150-450); RED BLOOD COUNT 4.23 10^6/uL (4.00-5.40); WHITE BLOOD COUNT 3.9 10^3/uL (4.0-10.0)
== END ==
LOC: M LAB REF 16:21
PROVIDERS: ATTEND Physician Assistant
DX: R53.83 Other fatigue (principal); K59.09 Other constipation; R63.4 Abnormal weight loss; R68.81 Early satiety; Z80.9 Family history of malignant neoplasm, unspecified

== ENCOUNTER → 2022-12-06 | Outpatient (CLI) | payer OTHER ==
[~2022-12-06] MED LIST changes: +GASTROGRAFIN SOLUTION 30ML As Ordered ONE; +ISOVUE-370 76% 100ML VIAL As Ordered ONE
== END ==
LOC: M RAD 12:14
PROVIDERS: ATTEND Physician Assistant
DX: K59.09 Other constipation (principal); R63.4 Abnormal weight loss; Z80.9 Family history of malignant neoplasm, unspecified; R68.81 Early satiety
CPT/HCPCS: 74177; Q9963; Q9967

== ENCOUNTER → 2023-02-02 | Outpatient (CLI) | payer OTHER ==
[~2023-02-02] MED LIST changes: -GASTROGRAFIN SOLUTION 30ML As Ordered ONE; -ISOVUE-370 76% 100ML VIAL As Ordered ONE
== END ==
LOC: M SOG 10:31
PROVIDERS: ATTEND Physician Assistant
DX: M79.645 Pain in left finger(s) (principal); Z53.9 Procedure and treatment not carried out, unspecified reason

== ENCOUNTER → 2023-03-06 | Outpatient (CLI) | payer OTHER | LOC: M SOG 08:04 | PROVIDERS: ATTEND Physician Assistant | DX: M79.645 Pain in left finger(s) (principal) ==

== ENCOUNTER → 2023-05-15 | Outpatient (REF) | payer OTHER ==
[2023-05-15 17:58] LABS: APPEARANCE, URINE CLOUDY (CLEAR); BACTERIA, URINE AUTO 3+ (NEGATIVE); BILIRUBIN, URINE AUTO NEGATIVE (NEGATIVE); BLOOD, URINE BLOOD NEGATIVE (NEGATIVE); COLOR, URINE AMBER (YELLOW); GLUCOSE, URINE (UA) AUTO NEGATIVE (NEGATIVE); KETONE, URINE AUTO NEGATIVE (NEGATIVE); LEUKOCYTE ESTERASE, URINE AUTO 2+ (NEGATIVE); NITRITE, URINE AUTO POSITIVE (NEGATIVE); PROTEIN, URINE AUTO NEGATIVE (NEGATIVE); RBC, URINE AUTO 0 /HPF (0-3); SPECIFIC GRAVITY URINE AUTO 1.008 (1.002-1.035); SQUAMOUS EPITHELIAL CELL UR AU 1 /HPF (0-6); WBC, URINE AUTO TNTC /HPF (0-3)
== END ==
LOC: M LAB REF 16:10
PROVIDERS: ATTEND Physician Assistant Medical
DX: N39.0 Urinary tract infection, site not specified (principal)

== ENCOUNTER 2023-05-18 09:53 | Day surgery (SDC) | payer OTHER ==
[~2023-05-18] VITALS: Ht 160 cm; Wt 43.6 kg
[~2023-05-18 09:53] MED LIST changes: +NS 1,000 ML IV ONE
[2023-05-18 10:54] VITALS: TEMP 98
[2023-05-18 11:15] VITALS: BP 108/83; O2SAT 95
== END 2023-05-18 11:30 | disposition home or self-care (01) ==
LOC: M OPP 09:53
PROVIDERS: ATTEND Surgery
DX: K59.00 Constipation, unspecified (principal); Z53.8 Procedure and treatment not carried out for other reasons; K29.70 Gastritis, unspecified, without bleeding; K22.89 Other specified disease of esophagus; Z79.51 Long term (current) use of inhaled steroids; Z79.899 Other long term (current) drug therapy; Z88.0 Allergy status to penicillin; Z88.2 Allergy status to sulfonamides; Z88.5 Allergy status to narcotic agent

== ENCOUNTER 2023-07-13 10:24 | Day surgery (SDC) | payer OTHER ==
[~2023-07-13] VITALS: Ht 160 cm; Wt 44.0 kg
[~2023-07-13 10:24] MED LIST changes: +EMER1PAK PO
[2023-07-13] MEDS ORDERED: propofoL 200 MG/20 ML VIAL As Ordered ONE ×2 (10:51→12:38)
[2023-07-13 12:49] VITALS: TEMP 97.9
[2023-07-13 13:06] VITALS: BP 113/90; O2SAT 99
== END 2023-07-13 14:46 | disposition home or self-care (01) ==
LOC: M OPP 10:24
PROVIDERS: ATTEND Surgery
DX: Z12.11 Encounter for screening for malignant neoplasm of colon (principal); Z53.8 Procedure and treatment not carried out for other reasons; Z79.1 Long term (current) use of non-steroidal anti-inflammatories (NSAID); Z79.52 Long term (current) use of systemic steroids; Z79.899 Other long term (current) drug therapy; Z88.0 Allergy status to penicillin; Z88.2 Allergy status to sulfonamides

== ENCOUNTER 2023-11-21 08:36 | Day surgery (SDC) | payer OTHER ==
[~2023-11-21] VITALS: Ht 160 cm; Wt 45.1 kg
[~2023-11-21 08:36] MED LIST changes: +IRON65TA2 PO; -NS 1,000 ML IV ONE; +THERTAB52 PO
[2023-11-21] MEDS: NS 1,000 ML IV ONE (09:12)
[2023-11-21] MEDS ORDERED: LIDOCAINE 2% 100MG/5ML SDV (FOR ANES.) As Ordered ONE (10:29)
[2023-11-21] MEDS ORDERED: propofoL 500 MG/50 ML VIAL As Ordered ONE (10:29)
[2023-11-21 10:39] VITALS: TEMP 97
[2023-11-21 10:54] VITALS: BP 128/99; O2SAT 97
== END 2023-11-21 11:00 | disposition home or self-care (01) ==
LOC: M OPP 08:36
PROVIDERS: ATTEND Surgery
DX: Z12.11 Encounter for screening for malignant neoplasm of colon (principal); K64.0 First degree hemorrhoids; Q43.8 Other specified congenital malformations of intestine; Z79.1 Long term (current) use of non-steroidal anti-inflammatories (NSAID); Z79.51 Long term (current) use of inhaled steroids; Z79.899 Other long term (current) drug therapy; Z88.0 Allergy status to penicillin; Z88.2 Allergy status to sulfonamides; Z88.5 Allergy status to narcotic agent

== ENCOUNTER → 2024-02-13 | Outpatient (REF) | payer OTHER ==
[~2024-02-13] MED LIST changes: +ONDA-282 PO; -ONDA4TAB6 PO
[2024-02-13 21:16] LABS: APPEARANCE, URINE MANUAL CLOUDY (CLEAR); COLOR, URINE MANUAL AMBER (YELLOW); SPECIFIC GRAVITY,URINE MANUAL 1.025 (1.002-1.035)
[2024-02-13 21:17] LABS: BILIRUBIN, URINE MANUAL OBSCURED (NEGATIVE); BLOOD URINE MANUAL OBSCURED (NEGATIVE); GLUCOSE, URINE (UA) MANUAL OBSCURED mg/dL (NEGATIVE); KETONE, URINE MANUAL OBSCURED mg/dL (NEGATIVE); LEUKOCYTE ESTERASE, URINE MAN OBSCURED (NEGATIVE); NITRITE, URINE MANUAL OBSCURED (NEGATIVE); PH,URINE MAN OBSCURED UNITS (5.0 - 7.0); PROTEIN, URINE MANUAL OBSCURED mg/dL (NEGATIVE); UROBILINOGEN, URINE MANUAL OBSCURED mg/dl (NORMAL)
[2024-02-13 21:25] LABS: CALCIUM OXALATE CRYSTALS,URINE SMALL AMOUNT /hpf; MUCUS, URINE MOD AMOUNT (NEGATIVE); WBC, URINE TNTC /hpf (0-3)
[2024-02-13 21:26] LABS: HYALINE CAST, URINE NONE SEEN /lpf (0-1)
[2024-02-13 21:27] LABS: BACTERIA, URINE MOD AMOUNT; SQUAMOUS EPITHELIAL CELL URINE SMALL AMOUNT /hpf (SMALL AMT); TRANSITIONAL EPI CELLS, URINE MOD AMOUNT /hpf
== END ==
LOC: M LAB REF 20:55
PROVIDERS: ATTEND Physician Assistant
DX: N39.0 Urinary tract infection, site not specified (principal)

== ENCOUNTER → 2024-05-26 | Outpatient (REF) | payer OTHER, MEDICAID ==
[2024-05-26 19:19] LABS: ALBUMIN 3.6 G/DL (3.2-5.2); ALKALINE PHOSPHATASE 52 U/L (46-116); ALT/SGPT 26 U/L (7.0-40); AST/SGOT 19 U/L (<34); BILIRUBIN,TOTAL 0.2 MG/DL (0.3-1.2); BLOOD UREA NITROGEN 23 MG/DL (9-23); CALCIUM LEVEL 8.3 MG/DL (8.5-10.1); CARBON DIOXIDE LEVEL 25 MMOL/L (20-31); CHLORIDE LEVEL 112 MMOL/L (98-107); CREATININE FOR GFR 0.86 MG/DL (0.55-1.30); GLOMERULAR FILTRATION RATE > 60.0 (>51); GLUCOSE, FASTING 77 MG/DL (60-100); SODIUM LEVEL 141 MMOL/L (136-145); TOTAL PROTEIN 6.4 G/DL (5.7-8.2)
[2024-05-26 19:21] LABS: RHEUMATOID FACTOR QUANT 7.2 IU/ML (<14)
[2024-05-28 12:37] LABS: SSA SJOGRENS A <1.0 NEG AI (<1.0 NEG); SSB SJOGRENS B <1.0 NEG AI (<1.0 NEG)
== END ==
LOC: M LAB REF 16:29
PROVIDERS: ATTEND Physician Assistant
DX: N39.0 Urinary tract infection, site not specified (principal); J06.9 Acute upper respiratory infection, unspecified; M79.645 Pain in left finger(s); M79.672 Pain in left foot; M79.671 Pain in right foot

== ENCOUNTER → 2024-05-27 | Outpatient (REF) | payer OTHER, MEDICAID ==
[2024-05-27 19:01] LABS: BASO # 0.1 10^3/uL (0.0-0.2); EOS # 0.2 10^3/uL (0.0-0.5); EOS % 3.5 % (0.0-3.0); HEMATOCRIT 37.2 % (36.0-47.0); HEMOGLOBIN 11.1 g/dl (12.0-15.5); LYMPH # 2.1 10^3/uL (1.5-5.0); LYMPH % 43.6 % (24.0-44.0); MEAN CORPUSCULAR HEMOGLOBIN 29.4 pg (27.0-33.0); MEAN CORPUSCULAR HGB CONC 29.8 g/dl (32.0-36.5); MEAN CORPUSCULAR VOLUME 98.7 fl (80.0-96.0); MONO # 0.3 10^3/uL (0.0-0.8); MONO % 6.8 % (2.0-8.0); NEUTROPHILS # 2.2 10^3/uL (1.5-8.5); NEUTROPHILS % 44.9 % (36.0-66.0); PLATELET COUNT, AUTOMATED 269 10^3/uL (150-450); RED BLOOD COUNT 3.77 10^6/uL (4.00-5.40); WHITE BLOOD COUNT 4.8 10^3/uL (4.0-10.0)
[2024-05-27 19:07] LABS: ERYTHROCYTE SEDIMENTATION RATE 4 mm/hr (0-30)
== END ==
LOC: M LAB REF 16:53
PROVIDERS: ATTEND Physician Assistant
DX: M79.644 Pain in right finger(s) (principal)

== ENCOUNTER → 2024-06-04 | Outpatient (CLI) | payer OTHER, MEDICAID | LOC: M LAB 17:53 | PROVIDERS: ATTEND Physician Assistant | DX: M79.672 Pain in left foot (principal); M79.671 Pain in right foot; M79.645 Pain in left finger(s); M79.644 Pain in right finger(s); G40.89 Other seizures; M18.0 Bilateral primary osteoarthritis of first carpometacarpal joints ==

== ENCOUNTER → 2024-06-11 | Outpatient (REF) | payer OTHER ==
[~2024-06-11] MED LIST changes: +GABA-1172 PO; -GABA-282 PO
== END ==
LOC: M LAB REF 16:09
PROVIDERS: ATTEND Physician Assistant
DX: B34.9 Viral infection, unspecified (principal)

== ENCOUNTER → 2024-08-25 | Outpatient (CLI) | payer OTHER ==
[2024-08-25 11:23] LABS: ALBUMIN 3.6 G/DL (3.2-5.2); ALKALINE PHOSPHATASE 51 U/L (35-104); ALT/SGPT 23 U/L (7.0-40); AST/SGOT 26 U/L (<34); BILIRUBIN,TOTAL 0.5 MG/DL (0.3-1.2); BLOOD UREA NITROGEN 21 MG/DL (9-23); CALCIUM LEVEL 9.4 MG/DL (8.5-10.1); CARBON DIOXIDE LEVEL 27 MMOL/L (20-31); CHLORIDE LEVEL 107 MMOL/L (98-107); CHOLESTEROL LEVEL 207 MG/DL (<200); CREATININE FOR GFR 0.78 MG/DL (0.55-1.30); GLOMERULAR FILTRATION RATE > 60.0 (>51); GLUCOSE, FASTING 84 MG/DL (60-100); HDL CHOLESTEROL 89.8 MG/DL (>40); NON-HDL-C 117.2 MG/DL; POTASSIUM SERUM 4.1 MMOL/L (3.5-5.1); SODIUM LEVEL 143 MMOL/L (136-145); TOTAL PROTEIN 6.4 G/DL (5.7-8.2); TRIGLYCERIDES LEVEL 56 MG/DL (<150)
== END ==
LOC: M LAB 10:20
PROVIDERS: ATTEND Physician Assistant
DX: E78.5 Hyperlipidemia, unspecified (principal)

== ENCOUNTER → 2024-10-01 | Outpatient (REF) | payer OTHER ==
[2024-10-01 16:20] LABS: APPEARANCE, URINE CLOUDY (CLEAR); BACTERIA, URINE AUTO 1+ (NEGATIVE); BILIRUBIN, URINE AUTO NEGATIVE (NEGATIVE); BLOOD, URINE BLOOD 2+ (NEGATIVE); COLOR, URINE AMBER (YELLOW); GLUCOSE, URINE (UA) AUTO NEGATIVE (NEGATIVE); KETONE, URINE AUTO NEGATIVE (NEGATIVE); LEUKOCYTE ESTERASE, URINE AUTO 2+ (NEGATIVE); NITRITE, URINE AUTO POSITIVE (NEGATIVE); PROTEIN, URINE AUTO 2+ mg/dL (NEGATIVE); RBC, URINE AUTO 81 /HPF (0-3); SPECIFIC GRAVITY URINE AUTO 1.017 (1.002-1.035); SQUAMOUS EPITHELIAL CELL UR AU 1 /HPF (0-6); UROBILINOGEN, URINE AUTO 0.2 mg/dL (0.0-2.0); WBC, URINE AUTO TNTC /HPF (0-3)
[2024-10-01 17:21] LABS: Trichomonas vaginalis (AMP) NOT DETECTED (NEGATIVE)
[2024-10-01 17:44] LABS: GC DNA AMPLIFICATION NEGATIVE (NEGATIVE)
== END ==
LOC: M LAB REF 16:08
PROVIDERS: ATTEND Physician Assistant
DX: N39.0 Urinary tract infection, site not specified (principal)

== ENCOUNTER → 2024-10-09 | Outpatient (REF) | payer OTHER, MEDICAID ==
[2024-10-11 16:36] LABS: HPV APTIMA Not Detected (Not Detected)
== END ==
LOC: M LAB REF 17:29
PROVIDERS: ATTEND Physician Assistant
DX: Z12.4 Encounter for screening for malignant neoplasm of cervix (principal); Z11.3 Encounter for screening for infections with a predominantly sexual mode of transmission

== ENCOUNTER → 2024-10-22 | Outpatient (REF) | payer OTHER, MEDICAID | LOC: M LAB REF 16:19 | PROVIDERS: ATTEND Physician Assistant | DX: R50.9 Fever, unspecified (principal); J02.9 Acute pharyngitis, unspecified ==

== ENCOUNTER → 2024-10-30 | Outpatient (CLI) | payer OTHER | LOC: M WHC 13:41 | PROVIDERS: ATTEND Physician Assistant | DX: Z12.31 Encounter for screening mammogram for malignant neoplasm of breast (principal); R92.333 Mammographic heterogeneous density, bilateral breasts ==

== ENCOUNTER 2024-10-31 12:30 | Emergency (ER) | payer OTHER ==
[~2024-10-31] VITALS: Ht 157.5 cm; Wt 47.3 kg
[2024-10-31 12:33] VITALS: BP 109/74; TEMP 98.5; O2SAT 99
== END 2024-10-31 16:00 | disposition left against medical advice (07) ==
LOC: M ED 12:30
DX: Z53.21 Procedure and treatment not carried out due to patient leaving prior to being seen by health care provider (principal)

== ENCOUNTER → 2024-10-31 | Outpatient (REF) | payer OTHER ==
[2024-10-31 20:12] LABS: APPEARANCE, URINE CLEAR (CLEAR); BACTERIA, URINE AUTO 1+ (NEGATIVE); BILIRUBIN, URINE AUTO NEGATIVE (NEGATIVE); BLOOD, URINE BLOOD NEGATIVE (NEGATIVE); COLOR, URINE YELLOW (YELLOW); GLUCOSE, URINE (UA) AUTO NEGATIVE (NEGATIVE); KETONE, URINE AUTO NEGATIVE (NEGATIVE); LEUKOCYTE ESTERASE, URINE AUTO 1+ (NEGATIVE); NITRITE, URINE AUTO NEGATIVE (NEGATIVE); PROTEIN, URINE AUTO NEGATIVE (NEGATIVE); RBC, URINE AUTO 0 /HPF (0-3); SPECIFIC GRAVITY URINE AUTO 1.008 (1.002-1.035); SQUAMOUS EPITHELIAL CELL UR AU 1 /HPF (0-6); UROBILINOGEN, URINE AUTO 0.2 mg/dL (0.0-2.0); WBC, URINE AUTO 10 /HPF (0-3)
== END ==
LOC: M LAB REF 19:31
PROVIDERS: ATTEND Physician Assistant Medical
DX: N39.0 Urinary tract infection, site not specified (principal)

== ENCOUNTER 2025-05-29 13:19 | Observation (INO) | payer OTHER ==
[~2025-05-29] VITALS: Ht 157.5 cm; Wt 44.8 kg
[~2025-05-29 13:19] MED LIST changes: +ACETAMINOPHEN 1000MG/100ML IV BAG As Ordered ONE; +ALBU8.5H INH; +AMIT10TA11; -AMIT10TA7; +ASPI81CH48 PO; +ATOR1TAB21 PO; +B-12100010 PO; +CLON1TAB8 PO; +GLUCCAP2 PO; +GLYCOPYRROLATE INJ 0.2 MG/ML 2 ML VIAL As Ordered ONE; +IBUP600T42 PO; +KETOROLAC 30 MG/ML 1 ML VIAL As Ordered ONE; +LIDOCAINE 2% 100 MG/5 ML SDV (FOR ANES.) As Ordered ONE; +LINZ145C PO; +MIDAZOLAM INJ 2 MG/2 ML VIAL As Ordered ONE; +MM S100C PO; +OMEG10002 PO; +ONDANSETRON 4MG 2ML VIAL As Ordered ONE; +RIZA10TA2 PO; +ROCURONIUM BROMIDE 50MG/5ML VIAL As Ordered ONE; +SOUR400C PO; +SUGAMMADEX SODIUM 500 MG/5 ML VIAL As Ordered ONE; +TOPI-257 PO; -TOPI100T9 PO; +TURM500C10 PO; +VITA200016 PO; +ZOLP10TA11 PO; +[UNRECOGNIZED DRUG - OTHER] PO; +dexAMETHasone 4 MG/ML 1 ML VIAL As Ordered ONE; +dexmedeTOMIDine (4 MCG/ML) 200 MCG/50 ML BTL As Ordered ONE
[2025-05-29] MEDS: LR 1,000 ML IV SCH ×4 (14:00→21:09)
[2025-05-29] MEDS ORDERED: RIZA10TA2 PO (14:03)
[2025-05-29] MEDS ORDERED: HOME MED LIST COMPLETE! XX SCH (14:05)
[2025-05-29 14:20] LABS: PLATELET COUNT, AUTOMATED 244 10^3/uL (150-450)
[2025-05-29] MEDS: ceFAZolin SOD 2 GM IV ONCE IV ONE (14:40)
[2025-05-29] MEDS ORDERED: HYDROmorphone HCL 2 MG/ML 1 ML VIAL As Ordered ONE (15:07)
[2025-05-29] MEDS ORDERED: ONDANSETRON 4MG 2ML VIAL IV PRN ×3 (16:25→18:35)
[2025-05-29] MEDS ORDERED: COLA100C5 PO (16:43)
[2025-05-29] MEDS ORDERED: IBUP600T42 PO (16:43)
[2025-05-29] MEDS ORDERED: OXYC1TAB23 PO (16:48)
[2025-05-29] MEDS ORDERED: KETOROLAC 30 MG/ML 1 ML VIAL IV PRN (16:55)
[2025-05-29] MEDS ORDERED: ALBUTEROL 90 MCG/ACT 8 GM HFA INHALER INH PRN (17:00)
[2025-05-29] MEDS: HYDROMORPHONE HCL 0.5 MG/0.5 ML SYRINGE IV PRN ×2 (18:22→18:30)
[2025-05-29] MEDS ORDERED: ADDE30TA PO (18:40)
[2025-05-29 19:30] VITALS: BP 128/80; TEMP 97.2; O2SAT 98
[2025-05-29 20:00] VITALS: BP 107/74; TEMP 98.2; O2SAT 99
[2025-05-29 20:30] VITALS: BP 114/74; TEMP 98.2; O2SAT 99
[2025-05-29] MEDS: TOPIRAMATE 100 MG TAB PO SCH (21:00)
[2025-05-29] MEDS: clonazePAM 1 MG TAB PO SCH (21:12)
[2025-05-29] MEDS: DOCUSATE SODIUM 100 MG CAPSULE PO SCH (21:12)
[2025-05-29 21:30] VITALS: BP 111/72; TEMP 98.2; O2SAT 97
[2025-05-29 22:30] VITALS: BP 111/73; TEMP 98.4; O2SAT 97
[2025-05-29 23:30] VITALS: BP 94/59; TEMP 98.2; O2SAT 98
[2025-05-30 00:30] VITALS: BP 90/52; TEMP 97.6; O2SAT 99
[2025-05-30 04:00] VITALS: BP 93/52; TEMP 98.7; O2SAT 98
[2025-05-30] MEDS: PERCOCET 5MG/325MG TAB PO PRN (07:43)
[2025-05-30 08:00] VITALS: BP 106/73; TEMP 98.6; O2SAT 98
[2025-05-30 12:00] VITALS: BP 123/77; TEMP 99.2; O2SAT 100
== END 2025-05-30 20:30 | disposition home or self-care (01) ==
LOC: M SDC 13:19 → M MS4PR 13:20
PROVIDERS: ADMIT Specialist; ATTEND Specialist
DX: N81.2 Incomplete uterovaginal prolapse (principal); N39.3 Stress incontinence (female) (male); K59.00 Constipation, unspecified; D64.9 Anemia, unspecified; F90.9 Attention-deficit hyperactivity disorder, unspecified type; F41.9 Anxiety disorder, unspecified; F32.A Depression, unspecified; Z79.899 Other long term (current) drug therapy; Z88.0 Allergy status to penicillin; Z88.2 Allergy status to sulfonamides; Z88.8 Allergy status to other drugs, medicaments and biological substances; Z86.73 Personal history of transient ischemic attack (TIA), and cerebral infarction without residual deficits; Z79.51 Long term (current) use of inhaled steroids
CPT/HCPCS: 57240; 57283; 57288; 58571; 85027; 86850; 86900; 86901; 88307; C1771; J0131; J0665; J0688; J1100; J1171; J1596; J1885; J2250; J2405; J2765; J3010; S2900